=== PATIENT | male | born 1960 | race American Indian/Alaskan Native ===

== ENCOUNTER 2018-02-28 16:45 | Inpatient (IN) | payer MEDICARE, OTHER ==
[2018-02-28 16:46] VITALS: BMI 58.2
[2018-02-28] MEDS ORDERED: Albuterol 0.083% Inhal Sol (2.5 mg/3 mL) UD INH STA (18:19)
--- NOTE | 2018-02-28 18:30 | C.PDOC ---
History Of Present Illness 57yo male, with history of hypertension, presents to the ED with complaints of 1 week of progressive shortness of breath worsening with exertion, fatigue, and increased sleeping. He denies any previous history of such symptoms. He denies any fever, chills, chest pain, weakness, calf pain, recent travels, and history of DVT or PE. No other complaints. Time Seen by Provider: 02/28/18 17:34 Chief Complaint (Nursing): Shortness Of Breath History Per: Patient History/Exam Limitations: no limitations Onset/Duration Of Symptoms: Days Current Symptoms Are (Timing): Still Present Associated Symptoms: denies: Fever, Chills, Chest Pain Past Medical History Reviewed: Historical Data, Nursing Documentation, Vital Signs Vital Signs: Last Vital Signs Temp 97.5 F L 02/28/18 17:15 Pulse 85 02/28/18 17:15 Resp 20 02/28/18 17:15 BP 131/86 02/28/18 17:15 Pulse Ox 92 L 02/28/18 18:50 - Medical History PMH: Anemia, Arthritis, HTN, Hypercholesterolemia (HTN) Denies: Asthma, Chronic Kidney Disease Surgical History: Endoscopy - [facility] Procedures INSERTION OF INFUSION DEV INTO SUP VENA CAVA, PERC APPROACH (12/14/15) Family History: States: No Known Family Hx - Social History Hx Tobacco Use: No Hx Alcohol Use: No Hx Substance Use: No - Immunization History Hx Tetanus Toxoid Vaccination: No Hx Influenza Vaccination: No Hx Pneumococcal Vaccination: No Review Of Systems Except As Marked, All Systems Reviewed And Found Negative. Constitutional: Positive for: Other (fatigue). Negative for: Fever, Chills Cardiovascular: Negative for: Chest Pain Respiratory: Positive for: Shortness of Breath Physical Exam - Physical Exam Appears: Non-toxic, No Acute Distress Skin: Normal Color, Warm, Dry Head: Atraumatic, Normacephalic Eye(s): bilateral: Normal Inspection, PERRL Oral Mucosa: Moist Neck: Normal ROM, Supple Chest: Symmetrical Cardiovascular: Rhythm Regular Respiratory: Decreased Breath Sounds (diminished breath sounds bilaterally) Gastrointestinal/Abdominal: Normal Exam, Bowel Sounds, Soft Extremity: Pedal Edema (2+ pitting, bilaterally), Other (ulcer noted to left lateral tib/fib region) Neurological/Psych: Oriented x3 ED Course And Treatment O2 Sat by Pulse Oximetry: 92 Medical Decision Making Medical Decision Making: Impression: Shortness of breath Plan: -- Labs -- CXR -- Albuterol 2.5 mg INH -- Urinalysis Disposition - Disposition Disposition Time: 19:00 Condition: STABLE Forms: [facility] (Y[place]i) - Clinical Impression Clinical Impression: Dyspnea Physician Patient Turnover Patient Signed Over To: Shayna Mann Handoff Comments: case s/o pending labs, imaging, reevaluation and disposition
[2018-02-28] MEDS ORDERED: Albuterol 0.083% Inhal Sol (2.5 mg/3 mL) UD ONE (18:54)
[2018-02-28] MEDS ORDERED: Enoxaparin 150 mg Syringe SC STA (20:04)
[2018-02-28 20:11] LABS: BASO # 0.1 K/uL (0.0-0.2); BASO % 0.5 % (0.0-2.0); EOS # 0.3 K/uL (0.0-0.7); EOS % 2.1 % (0.0-4.0); HEMOGLOBIN 11.4 g/dL (12.0-18.0); LYMPH # 2.4 K/uL (1.0-4.3); LYMPH % 15.8 % (20.0-40.0); MEAN CELL VOLUME 86.6 fL (80.0-94.0); MEAN CORPUSCULAR HEMOGLOBIN 27.4 pg (27.0-31.0); MEAN CORPUSCULAR HGB CONC 31.6 g/dL (33.0-37.0); MEAN PLATELET VOLUME 7.2 fL (7.2-11.7); MONO # 1.1 K/uL (0.0-0.8); MONO % 7.1 % (0.0-10.0); NEUT # 11.4 K/uL (1.8-7.0); NEUT % 74.5 % (50.0-75.0); NRBC % 0.1 % (0.0-2.0); RBC 4.15 Mil/uL (4.40-5.90); WHITE BLOOD COUNT 15.3 K/uL (4.8-10.8)
[2018-02-28 20:23] LABS: CALCIUM 9.8 mg/dl (8.6-10.4)
[2018-02-28 20:24] LABS: ALB/GLOB RATIO 0.9 (1.0-2.1); ALBUMIN 4.2 g/dL (3.5-5.0)
[2018-02-28] MEDS ORDERED: Enoxaparin 100 mg Syringe ONE (20:29)
[2018-02-28] MEDS ORDERED: Enoxaparin 60 mg Syringe ONE (20:29)
[2018-02-28 20:33] LABS: URINE BILIRUBIN NEGATIVE (NEGATIVE); URINE BLOOD 1+ (NEGATIVE); URINE CLARITY Clear (Clear); URINE COLOR Straw (YELLOW); URINE GLUCOSE (UA) NORMAL (Normal); URINE HYALINE CAST 0-2 /lpf (0-2); URINE LEUKOCYTE ESTERASE NEG Leu/uL (Negative); URINE PROTEIN NEGATIVE (NEGATIVE); URINE UROBILINOGEN NORMAL mg/dL (0.2-1.0)
[2018-02-28 20:37] LABS: TROPONIN I 0.084 ng/mL (0.00-0.120)
[2018-02-28] MEDS ORDERED: Iodixanol 320 mg/ml 150 ml Bottle IV ONE (20:59)
--- NOTE | 2018-02-28 22:24 | CT ---
EXAM: CT Angiography Chest With Intravenous Contrast CLINICAL HISTORY: 57 years old, male; Signs and symptoms; Shortness of breath; Patient HX: Obese; Additional info: SOB TECHNIQUE: Axial computed tomographic angiography images of the chest with intravenous contrast using pulmonary embolism protocol. All CT scans at this facility use one or more dose reduction techniques, viz.: automated exposure control; ma/kV adjustment per patient size (including targeted exams where dose is matched to indication; i.e. head); or iterative reconstruction technique. MIP reconstructed images were created and reviewed. Coronal and sagittal reformatted images were created and reviewed. CONTRAST: 150 mL of VISIPAQUE 320 administered intravenously. COMPARISON: CR - CHEST PORTABLE 2015-12-30 15:45 FINDINGS: Limitations: Technical factors related to body habitus. Motion artifact - mild. Streak artifact - mild. Pulmonary arteries: No definite filling defects within main, lobar, segmental branches. Suboptimal evaluation of subsegmental branches. Aorta: No aneurysm. No dissection. Lungs: Mild atelectasis/scarring. No consolidation. Mild mosaic pattern of lung parenchyma. Minimal interlobular septal thickening. Pleural space: No significant effusion. No pneumothorax. Heart: Mild cardiomegaly. No significant pericardial effusion. Bones/joints: Mild degenerative changes of spine. No acute fracture. Soft tissues: Mild gynecomastia. Lymph nodes: No pathologically enlarged lymph nodes. Adrenals: Mild hypertrophy of adrenal glands. IMPRESSION: 1. No definite pulmonary embolism. 2. Possible early interstitial edema. Clinical correlation is needed. 3. Incidental/non-acute findings are described above.
[2018-02-28] MEDS ORDERED: Sod Polystyrene Sulf 15 gm/60 ml Susp PO ONE (23:09)
[2018-02-28] MEDS ORDERED: Sod Polystyrene Sulf 15 gm/60 ml Susp ONE ×2 (23:24→23:31)
[2018-02-28] MEDS ORDERED: Oxycodone/Acetaminophen 5/325 mg Tab ONE (23:24)
[2018-02-28] MEDS: Oxycodone/Acetaminophen 5/325 mg Tab PO PRN (23:27)
[2018-02-28] MEDS: Vancomycin 1 gm/NS 200 ml 1 GM/200 ML BAG IVPB SCH (23:35)
[2018-03-01] MEDS: Albuterol-Ipratrop 3 mg / 0.5 (3 ml) UD INH SCH ×7 (00:05→23:50)
[2018-03-01 08:03] LABS: BASO # 0.1 K/uL (0.0-0.2); BASO % 0.5 % (0.0-2.0); EOS # 0.2 K/uL (0.0-0.7); EOS % 1.4 % (0.0-4.0); HEMOGLOBIN 11.1 g/dL (12.0-18.0); LYMPH # 1.9 K/uL (1.0-4.3); MEAN CELL VOLUME 86.1 fL (80.0-94.0); MEAN CORPUSCULAR HGB CONC 32.5 g/dL (33.0-37.0); MEAN PLATELET VOLUME 7.6 fL (7.2-11.7); MONO # 1.2 K/uL (0.0-0.8); MONO % 8.5 % (0.0-10.0); NEUT # 11.2 K/uL (1.8-7.0); NEUT % 76.6 % (50.0-75.0); RBC 3.98 Mil/uL (4.40-5.90); RED CELL DISTRIBUTION WIDTH 17.1 % (11.5-14.5); WHITE BLOOD COUNT 14.6 K/uL (4.8-10.8)
--- NOTE | 2018-03-01 08:20 | RAD ---
HISTORY: SOB COMPARISON: Chest x-ray 12/30/2015 TECHNIQUE: Chest one view . FINDINGS: LUNGS: Moderate pulmonary vascular congestion. PLEURA: No pleural effusion is identified. CARDIOVASCULAR: Heart size is within normal limits. OSSEOUS STRUCTURES: Mild hypertrophic degenerative changes noted of the bilateral acromioclavicular joints. VISUALIZED UPPER ABDOMEN: Unremarkable. OTHER FINDINGS: None. IMPRESSION: Moderate pulmonary vascular congestion.
[2018-03-01 08:32] LABS: ALB/GLOB RATIO 0.8 (1.0-2.1); ALBUMIN 3.8 g/dL (3.5-5.0); ALT/SGPT 31 U/L (21-72); AST/SGOT 35 U/L (17-59); BLOOD UREA NITROGEN 19 mg/dL (9-20); CALCIUM 9.4 mg/dl (8.6-10.4); GFR AFRICAN-AMERICAN > 60; GFR NON-AFRICAN AMERICAN 57
[2018-03-01 08:43] LABS: B-TYPE NATRIURETIC PEPTIDE 340 pg/mL (0-900)
[2018-03-01] MEDS: Enoxaparin 40 mg Syringe SC SCH (10:18)
[2018-03-01] MEDS: Vancomycin 1 gm/NS 200 ml 1 GM/200 ML BAG IVPB SCH ×2 (11:33→23:49)
--- NOTE | 2018-03-01 12:03 | CP.PCM.CON ---
History of Present Illness - History of Present Illness History of Present Illness: 57yo male, with history of hypertension, presents to the ED with complaints of 1 week of progressive shortness of breath worsening with exertion, fatigue, and increased sleeping. He denies any previous history of such symptoms. He denies any fever, chills, chest pain, weakness, calf pain, recent travels, and history of DVT or PE. No other complaints. referred for ID eval antibiotic management of SSTI / leg ulcers / cellulitis - Medical History PMH: Anemia, Arthritis, HTN, Hypercholesterolemia (HTN) morbid obesity ?ANDREIA Denies: Asthma, Chronic Kidney Disease Surgical History: Endoscopy - [facility] Procedures INSERTION OF INFUSION DEV INTO SUP VENA CAVA, PERC APPROACH (12/14/15) Family History: States: No Known Family Hx Review of Systems - Review of Systems All systems: reviewed and no additional remarkable complaints except - Constitutional Constitutional: As Per HPI - EENT Eyes: absent: As Per HPI, Blind Spots, Blurred Vision, Change in Vision, Decreased Night Vision, Diplopia, Discharge, Dry Eye, Exophthalmos, Floaters, Irritation, Itchy Eyes, Loss of Peripheral Vision, Pain, Photophobia, Requires Corrective Lenses, Sees Flashes, Spots in Vision, Tunnel Vision, Other Visual Disturbances, Loss of Vision, Other Ears: absent: As Per HPI, Decreased Hearing, Ear Discharge, Ear Pain, Tinnitus, Abnormal Hearing, Disequilibrium, Dizziness, Other Nose/Mouth/Throat: absent: As Per HPI, Epistaxis, Nasal Congestion, Nasal Discharge, Nasal Obstruction, Nasal Trauma, Nose Pain, Post Nasal Drip, Sinus Pain, Sinus Pressure, Bleeding Gums, Change in Voice, Dental Pain, Dry Mouth, Dysphagia, Halitosis, Hoarsness, Lip Swelling, Mouth Lesions, Mouth Pain, Odynophagia, Sore Throat, Throat Swelling, Tongue Swelling, Facial Pain, Neck Pain, Neck Mass, Other - Cardiovascular Cardiovascular: As Per HPI - Respiratory Respiratory: As Per HPI - Gastrointestinal Gastrointestinal: absent: As Per HPI, Abdominal Pain, Belching, Bloating, Change in Bowel Habits, Change in Stool Character, Coffee Ground Emesis, Constipation, Cramping, Diarrhea, Dyspepsia, Dysphagia, Early Satiety, Excessive Flatus, Fecal Incontinence, Heartburn, Hematemesis, Hematochezia, Loose Stools, Melena, Nausea, Odynophagia, Temesmus, Vomiting, Other - Genitourinary Genitourinary: absent: As Per HPI, Change in Urinary Stream, Difficulty Urinating, Dysuria, Flank Pain, Hematuria, Pyuria, Nocturia, Urinary Incontinence, Urinary Frequency, Urinary Hesitance, Urinary Urgency, Voiding Freq/Small Amts, Freq UTI, Hx Renal/Bladder Calculi, Hx /Renal Surgery, Bladder Distension, Other - Musculoskeletal Musculoskeletal: As Per HPI - Integumentary Integumentary: As Per HPI, Skin Pain, Wounds - Neurological Neurological: absent: As Per HPI, Abnormal Gait, Abnormal Hearing, Abnormal Movements, Abnormal Speech, Behavioral Changes, Burning Sensations, Confusion, Convulsions, Disequilibrium, Dizziness, Numbness, Focal Weakness, Frequent Falls , Headaches, Lack of Coordination, Loss of Vision, Memory Loss, Paresthesias, Radicular Pain, Restless Legs, Sensory Deficit, Syncope, Tingling, Tremor, Vertigo, Weakness, Other Visual Disturbances, Other - Psychiatric Psychiatric: absent: As Per HPI, Abnormal Sleep Pattern, Anhedonia, Anxiety, Auditory Hallucinations, Behavioral Changes, Change in Appetite, Change in Libido, Confusion, Depression, Difficulty Concentrating, Hallucinations, Homicidal Ideation, Hopelessness, Irritability, Memory Loss, Mood Swings, Panic Attacks, Paranoia, Suicidal Ideation, Visual Hallucinations, Tactile Hallucinations, Other - Endocrine Endocrine: absent: As Per HPI, Change in Body Appearance, Change in Libido, Cold Intolorance, Deepening of Voice, Excessive Sweating, Fatigue, Flushing, Heat Intolorance, Increase in Ring/Shoe/Hat Size, Palpitations, Polydipsia, Polyphagia, Polyuria, Other - Hematologic/Lymphatic Hematologic: absent: As Per HPI, Easy Bleeding, Easy Bruising, Lymphadenopathy, Other Past Patient History - Past Medical History & Family History Past Medical History?: Yes - Past Social History Smoking Status: Never Smoked - CARDIAC Hx Cardiac Disorders: Yes Hx Hypercholesterolemia: Yes (HTN) Hx Hypertension: Yes - PULMONARY Hx Respiratory Disorders: No Hx Asthma: No - NEUROLOGICAL Hx Neurological Disorder: Yes Other/Comment: HX: RIGHT CARPAL TUNNEL SYNDROME. HX: LEFT CARPAL TIUNNEL SYNDROME - HEENT Hx HEENT Problems: No Other/Comment: glasses - RENAL Hx Chronic Kidney Disease: No - ENDOCRINE/METABOLIC Hx Endocrine Disorders: No Hx Diabetes Mellitus Type 2: No - HEMATOLOGICAL/ONCOLOGICAL Hx Blood Disorders: Yes Hx Anemia: Yes - INTEGUMENTARY Hx Dermatological Problems: Yes Hx Cellulitis: Yes (left leg) Hx Psoriasis: Yes - MUSCULOSKELETAL/RHEUMATOLOGICAL Hx Falls: No - GASTROINTESTINAL Hx Gastrointestinal Disorders: No - GENITOURINARY/GYNECOLOGICAL Hx Genitourinary Disorders: No - PSYCHIATRIC Hx Substance Use: No - SURGICAL HISTORY Hx Surgeries: Yes Hx Cardiac Catheterization: Yes Other/Comment: 30 years ago right leg pt. fell playing basketball tore ligament has a noticable scar. HX: RIGHT CARPAL TUNNEL RELEASE - ANESTHESIA Hx Anesthesia: Yes Hx Anesthesia Reactions: Yes (ANXIETY) Hx Malignant Hyperthermia: No Meds Allergies/Adverse Reactions: Allergies Allergy/AdvReac Type Severity Reaction Status Date / Time No Known Allergies Allergy Verified 02/28/18 17:18 - Medications Medications: Current Medications Albuterol/Ipratropium (Duoneb 3 Mg/0.5 Mg (3 Ml) Ud) 3 ml INH RQ4 [facility] Last Admin: 03/01/18 11:28 Dose: 3 ml Enoxaparin Sodium (Lovenox) 40 mg SC DAILY [facility] Last Admin: 03/01/18 10:18 Dose: 40 mg Furosemide (Lasix) 40 mg PO DAILY [facility] Last Admin: 03/01/18 10:15 Dose: 40 mg Vancomycin/Sodium Chloride (Vancomycin 1 Gm/Ns 200 Ml) 1 gm in 200 mls @ 133.333 mls/hr IVPB Q12H [facility] PRN Reason: Protocol Last Admin: 03/01/18 11:33 Dose: 133.333 mls/hr Oxycodone/Acetaminophen (Percocet 5/325 Mg Tab) 1 tab PO Q4H PRN PRN Reason: pain Stop: 03/03/18 23:03 Last Admin: 02/28/18 23:27 Dose: 1 tab Pneumococcal Polyvalent Vaccine (Pneumovax 23 Vaccine) 0.5 ml IM .ONCE ONE Stop: 03/03/18 14:01 Physical Exam - Constitutional Appears: Non-toxic, Chronically Ill - Head Exam Head Exam: NORMOCEPHALIC - Eye Exam Eye Exam: PERRL. absent: Scleral icterus - ENT Exam ENT Exam: Mucous Membranes Dry, Normal External Ear Exam, Normal Oropharynx - Neck Exam Neck exam: Negative for: Lymphadenopathy, Thyromegaly - Respiratory Exam Respiratory Exam: Decreased Breath Sounds, Rhonchi - Cardiovascular Exam Cardiovascular Exam: REGULAR RHYTHM, +S1, +S2 - GI/Abdominal Exam GI & Abdominal Exam: Diminished Bowel Sounds, Soft. absent: Tenderness - Rectal Exam Rectal Exam: Deferred - Exam Exam: NORMAL INSPECTION - Extremities Exam Extremities exam: Positive for: pedal edema, tenderness. Negative for: calf tenderness, pedal pulses present - Back Exam Back exam: absent: CVA tenderness (L), CVA tenderness (R), NORMAL INSPECTION - Neurological Exam Neurological exam: Alert, CN II-XII Intact - Psychiatric Exam Psychiatric exam: Depressed - Skin Skin Exam: Dry Results - Vital Signs Recent Vital Signs: Last Vital Signs Temp 97.9 F 03/01/18 08:24 Pulse 74 03/01/18 11:28 Resp 20 03/01/18 08:24 BP 120/80 03/01/18 10:15 Pulse Ox 96 03/01/18 08:24 - Labs Result Diagrams: 03/01/18 07:56 03/01/18 07:56 Labs: Laboratory Results - last 24 hr 02/28/18 02/28/18 02/28/18 19:29 20:09 20:09 WBC 15.3 H RBC 4.15 L Hgb 11.4 L Hct 35.9 MCV 86.6 MCH 27.4 MCHC 31.6 L RDW 17.0 H Plt Count 365 D MPV 7.2 Neut % (Auto) 74.5 Lymph % (Auto) 15.8 L Grimes % (Auto) 7.1 Eos % (Auto) 2.1 Baso % (Auto) 0.5 Neut # (Auto) 11.4 H Lymph # (Auto) 2.4 Grimes # (Auto) 1.1 H Eos # (Auto) 0.3 Baso # (Auto) 0.1 D-Dimer, Quantitative 3583 H Sodium 142 Potassium 6.0 H Chloride 104 Carbon Dioxide 31 H Anion Gap 13 BUN 22 H Creatinine 1.5 Est GFR ( Amer) 58 Est GFR (Non-Af Amer) 48 Random Glucose 92 Calcium 9.8 Total Bilirubin 1.6 H AST 60 H ALT 20 L D Alkaline Phosphatase 78 Troponin I 0.0840 NT-Pro-B Natriuret Pep 245 Total Protein 8.8 H Albumin 4.2 Globulin 4.6 H Albumin/Globulin Ratio 0.9 L Urine Color Urine Clarity Urine pH Ur Specific [place] Urine Protein Urine Glucose (UA) Urine Ketones Urine Blood Urine Nitrate Urine Bilirubin Urine Urobilinogen Ur Leukocyte Esterase Urine WBC (Auto) Urine RBC (Auto) Hyaline Casts 02/28/18 03/01/18 03/01/18 20:19 07:56 07:56 WBC 14.6 H RBC 3.98 L Hgb 11.1 L Hct 34.3 L MCV 86.1 MCH 28.0 MCHC 32.5 L RDW 17.1 H Plt Count 352 MPV 7.6 Neut % (Auto) 76.6 H Lymph % (Auto) 13.0 L Grimes % (Auto) 8.5 Eos % (Auto) 1.4 Baso % (Auto) 0.5 Neut # (Auto) 11.2 H Lymph # (Auto) 1.9 Grimes # (Auto) 1.2 H Eos # (Auto) 0.2 Baso # (Auto) 0.1 D-Dimer, Quantitative Sodium 135 Potassium 4.0 Chloride 105 Carbon Dioxide 28 Anion Gap 6 L BUN 19 Creatinine 1.3 Est GFR ( Amer) > 60 Est GFR (Non-Af Amer) 57 Random Glucose 103 Calcium 9.4 Total Bilirubin 0.6 AST 35 ALT 31 Alkaline Phosphatase 83 Troponin I NT-Pro-B Natriuret Pep 340 Total Protein 8.2 Albumin 3.8 Globulin 4.5 H Albumin/Globulin Ratio 0.8 L Urine Color Straw Urine Clarity Clear Urine pH 5.0 Ur Specific [place] 1.009 Urine Protein Negative Urine Glucose (UA) Normal Urine Ketones Negative Urine Blood 1+ H Urine Nitrate Negative Urine Bilirubin Negative Urine Urobilinogen Normal Ur Leukocyte Esterase Neg Urine WBC (Auto) 1 Urine RBC (Auto) 7 H Hyaline Casts 0-2 Assessment & Plan (1) Dyspnea Status: Acute (2) Leg ulcer, left Status: Acute (3) Morbid obesity Status: Acute (4) Cellulitis Status: Acute (5) Fever Status: Acute - Assessment and Plan (Free Text) Assessment: cont iv antibiotics and wound care consider vascular eval await cultures
[2018-03-01] MEDS ORDERED: Cefepime IV 1 gm in Dextrose 1 GM/50 ML BAG IVPB SCH (13:00)
--- NOTE | 2018-03-01 15:07 | CARD ---
APPROVED REPORT EKG Measurement Heart [id number] <Conclusion> Normal sinus rhythm Anteroseptal infarct, age undetermined Abnormal ECG
[2018-03-01] MEDS: Cefepime IV 1 gm in Dextrose 1 GM/50 ML BAG IVPB SCH (16:05)
--- NOTE | 2018-03-01 19:06 | CARD ---
APPROVED REPORT EXAM: Two-dimensional and M-mode echocardiogram with Doppler and color Doppler. Other Information Quality : TDSRhythm : INDICATION Dyspnea Peripheral Edema Morbid Obesity RISK FACTORS Hypertension 2D DIMENSIONS IVSd1.5 (0.7-1.1cm)LVDd4.2 (3.9-5.9cm) PWd1.5 (0.7-1.1cm)LVDs3.0 (2.5-4.0cm) FS (%) 29.2 %LVEF (%)56.4 (>50%) M-Mode DIMENSIONS Left Atrium (MM)3.94 (2.5-4.0cm)Aortic Root3.29 (2.2-3.7cm) Aortic Cusp Exc.2.33 (1.5-2.0cm) Mitral Valve MV E Xizvsoud74.0cm/sMV A Bcanvpol35.4cm/sE/A ratio1.1 TDI E/Lateral E'0.0E/Medial E'0.0 Tricuspid Valve TR Peak [id number]/sTR Peak Gr.29mmHg LEFT VENTRICLE There is moderate concentric left ventricular hypertrophy. The left ventricular systolic function is normal. The left ventricular ejection fraction is within the normal range. There is normal LV segmental wall motion. The left ventricular diastolic function is normal. Normal left atrial pressure. ATRIA The left atrial index is mildly increased. The right atrium size is normal. AORTIC VALVE The aortic valve is normal in structure. No aortic regurgitation is present. MITRAL VALVE The mitral valve is normal in structure. There is no mitral valve regurgitation noted. TRICUSPID VALVE The tricuspid valve is normal in structure. There is mild tricuspid regurgitation. Right ventricular systolic pressure is estimated at less than 30 mmHg. PULMONIC VALVE The pulmonic valve is not well visualized. GREAT VESSELS The IVC was not visualized. PERICARDIAL EFFUSION There is no gross pericardial effusion. <Conclusion> TECHNICALLY DIFFICULT STUDY. Normal bi-ventricular function. No significant valvular abnormality noted. No gross pericardial effusion.
[2018-03-01] MEDS: Oxycodone/Acetaminophen 5/325 mg Tab PO PRN (19:35)
[2018-03-02] MEDS: Cefepime IV 1 gm in Dextrose 1 GM/50 ML BAG IVPB SCH ×2 (03:30→16:42)
[2018-03-02] MEDS: Albuterol-Ipratrop 3 mg / 0.5 (3 ml) UD INH SCH ×5 (03:50→19:44)
[2018-03-02] MEDS: Enoxaparin 40 mg Syringe SC SCH (09:23)
--- NOTE | 2018-03-02 09:38 | HP ---
HISTORY OF PRESENT ILLNESS: A 57-year-old male with history of morbid obesity, sleep apnea, obesity hypoventilation syndrome, admitted to the hospital with chief compliant of lower extremity, shortness of breath, weakness. The patient uses BiPAP at home. The patient is morbidly obese. PHYSICAL EXAMINATION: VITAL SIGNS: Pulse 95, blood pressure 130/100, respiratory rate 20. HEENT: Within normal limits. NECK: Supple. CHEST: Symmetrical. Decreased air entry. HEART: Regular. ABDOMEN: Soft. EXTREMITIES: No pitting edema with cellulitis present. ASSESSMENT AND PLAN: The patient suffers from lower extremity with hypoventilation syndrome, core pulmonale, pulmonary hypertension and right side failure. At this point, get IV antibiotic, oxygen, BiPAP, dialysis. Marixa Panchal MD
[2018-03-02 11:30] LABS: BASO % 0.2 % (0.0-2.0); EOS % 0.3 % (0.0-4.0); HEMOGLOBIN 10.9 g/dL (12.0-18.0); LYMPH # 1.7 K/uL (1.0-4.3); MEAN CELL VOLUME 87.3 fL (80.0-94.0); MEAN CORPUSCULAR HEMOGLOBIN 27.5 pg (27.0-31.0); MEAN CORPUSCULAR HGB CONC 31.5 g/dL (33.0-37.0); MEAN PLATELET VOLUME 7.7 fL (7.2-11.7); MONO % 6.8 % (0.0-10.0); NEUT # 11.6 K/uL (1.8-7.0); NEUT % 80.7 % (50.0-75.0); RBC 3.97 Mil/uL (4.40-5.90); RED CELL DISTRIBUTION WIDTH 17.5 % (11.5-14.5); WHITE BLOOD COUNT 14.4 K/uL (4.8-10.8)
[2018-03-02 11:50] LABS: ALB/GLOB RATIO 0.9 (1.0-2.1); ALBUMIN 3.7 g/dL (3.5-5.0); ALT/SGPT 26 U/L (21-72); AST/SGOT 29 U/L (17-59); BLOOD UREA NITROGEN 18 mg/dL (9-20); CALCIUM 9.4 mg/dl (8.6-10.4); GFR AFRICAN-AMERICAN > 60; GFR NON-AFRICAN AMERICAN 57
[2018-03-02 11:55] LABS: VANCOMYCIN TROUGH 12.6 ug/mL (5.0-10.0)
[2018-03-02 12:26] LABS: HEPATITIS B SURFACE AG Negative (NEGATIVE)
[2018-03-02 12:27] LABS: HIV 1&2 ANTIBODY NEGATIVE (NEGATIVE)
[2018-03-02] MEDS: Vancomycin 1 gm/NS 200 ml 1 GM/200 ML BAG IVPB SCH ×2 (12:30→23:30)
[2018-03-02 12:32] LABS: HEPATITIS A IGM NEGATIVE (NEGATIVE); HEPATITIS B CORE AB NEGATIVE (NEGATIVE)
[2018-03-02 12:44] LABS: HEPATITIS C ANTIBODY NEGATIVE (NEGATIVE)
[2018-03-02 13:35] LABS: ABG ALLEN TEST POS; ARTERIAL BLOOD GAS HEMOGLOBIN 12.1 g/dL (11.7-17.4); ARTERIAL BLOOD GAS O2 SAT 88.7 % (95-98); ARTERIAL BLOOD GAS PCO2 90 mm/Hg (35-45); ARTERIAL BLOOD GAS PH 7.12 (7.35-7.45); ARTERIAL BLOOD GAS PO2 58 mm/Hg (80-100); ARTERIAL BLOOD GAS TCO2 32.1 mmol/L (22-28)
--- NOTE | 2018-03-02 13:50 | CP.PCM.PN ---
Subjective - Date & Time of Evaluation Date of Evaluation: 03/02/18 Time of Evaluation: 13:00 - Subjective Subjective: Patient seen today, tachypnic, sob noted , denies any chest pain, abdominal pain , Patient using on and off BIPAP , refused to use BIPAP continuously, despite multiple discussions with patient , de saturates with nasal canula below 90's patient refused to do ABG despite multiple discussions. Objective - Vital Signs/Intake and Output Vital Signs (last 24 hours): Temp Pulse Resp BP Pulse Ox 98.1 F 110 H 20 138/80 93 L 03/02/18 07:00 03/02/18 07:00 03/02/18 07:00 03/02/18 09:23 03/02/18 07:00 Intake and Output: 03/02/18 03/02/18 06:59 18:59 Intake Total 650 Output Total 500 Balance 150 - Medications Medications: Current Medications Albuterol/Ipratropium (Duoneb 3 Mg/0.5 Mg (3 Ml) Ud) 3 ml INH RQ4 [facility] Last Admin: 03/02/18 11:04 Dose: Not Given Enoxaparin Sodium (Lovenox) 40 mg SC DAILY [facility] Last Admin: 03/02/18 09:23 Dose: 40 mg Furosemide (Lasix) 40 mg PO DAILY [facility] Last Admin: 03/02/18 09:23 Dose: 40 mg Vancomycin/Sodium Chloride (Vancomycin 1 Gm/Ns 200 Ml) 1 gm in 200 mls @ 133.333 mls/hr IVPB Q12H [facility] PRN Reason: Protocol Last Admin: 03/02/18 12:30 Dose: 133.333 mls/hr Cefepime HCl (Maxipime Iv 1 Gm Premix) 1 gm in 50 mls @ 100 mls/hr IVPB Q12H [facility] PRN Reason: Protocol Last Admin: 03/02/18 03:30 Dose: 100 mls/hr Oxycodone/Acetaminophen (Percocet 5/325 Mg Tab) 1 tab PO Q4H PRN PRN Reason: pain Stop: 03/03/18 23:03 Last Admin: 03/01/18 19:35 Dose: 1 tab Pneumococcal Polyvalent Vaccine (Pneumovax 23 Vaccine) 0.5 ml IM .ONCE ONE Stop: 03/03/18 14:01 - Labs Labs: 03/02/18 11:24 03/02/18 11:24 Assessment and Plan - Assessment and Plan (Free Text) Assessment: A/P 57 yr old male with pmhx of HTN , Hypercholesterolemia admitted with LE judy, wound and 1 week hx of SOB Patient refused ABG multiple times and refused to keep BIPAP continuously ABG done with help of presence - (See results) D/w Dr. Campo , second crusher and evaluated patient and accepts patient to ICU for farther management. The above plan discussed with Dr. Gustavo laguerre and agrees with plan
--- NOTE | 2018-03-02 14:04 | CP.PCM.PN ---
Subjective - Date & Time of Evaluation Date of Evaluation: 03/02/18 Time of Evaluation: 10:00 - Subjective Subjective: afeb c/o pain iv rx in progress Objective - Vital Signs/Intake and Output Vital Signs (last 24 hours): Temp Pulse Resp BP Pulse Ox 98.1 F 110 H 20 138/80 93 L 03/02/18 07:00 03/02/18 14:00 03/02/18 07:00 03/02/18 09:23 03/02/18 07:00 Intake and Output: 03/02/18 03/02/18 06:59 18:59 Intake Total 650 Output Total 500 Balance 150 - Medications Medications: Current Medications Albuterol/Ipratropium (Duoneb 3 Mg/0.5 Mg (3 Ml) Ud) 3 ml INH RQ4 [facility] Last Admin: 03/02/18 11:04 Dose: Not Given Enoxaparin Sodium (Lovenox) 40 mg SC DAILY [facility] Last Admin: 03/02/18 09:23 Dose: 40 mg Furosemide (Lasix) 40 mg PO DAILY [facility] Last Admin: 03/02/18 09:23 Dose: 40 mg Vancomycin/Sodium Chloride (Vancomycin 1 Gm/Ns 200 Ml) 1 gm in 200 mls @ 133.333 mls/hr IVPB Q12H [facility] PRN Reason: Protocol Last Admin: 03/02/18 12:30 Dose: 133.333 mls/hr Cefepime HCl (Maxipime Iv 1 Gm Premix) 1 gm in 50 mls @ 100 mls/hr IVPB Q12H [facility] PRN Reason: Protocol Last Admin: 03/02/18 03:30 Dose: 100 mls/hr Oxycodone/Acetaminophen (Percocet 5/325 Mg Tab) 1 tab PO Q4H PRN PRN Reason: pain Stop: 03/03/18 23:03 Last Admin: 03/01/18 19:35 Dose: 1 tab Pneumococcal Polyvalent Vaccine (Pneumovax 23 Vaccine) 0.5 ml IM .ONCE ONE Stop: 03/03/18 14:01 - Labs Labs: 03/02/18 11:24 03/02/18 11:24 - Constitutional Appears: Non-toxic, Chronically Ill - Head Exam Head Exam: NORMOCEPHALIC - Eye Exam Eye Exam: PERRL - ENT Exam ENT Exam: Mucous Membranes Dry - Neck Exam Neck Exam: absent: Lymphadenopathy - Respiratory Exam Respiratory Exam: Decreased Breath Sounds - Cardiovascular Exam Cardiovascular Exam: REGULAR RHYTHM - GI/Abdominal Exam GI & Abdominal Exam: Distended - Rectal Exam Rectal Exam: Deferred - Exam Exam: NORMAL INSPECTION - Extremities Exam Extremities Exam: Pedal Edema Assessment and Plan (1) Dyspnea Status: Acute (2) Leg ulcer, left Status: Acute (3) Morbid obesity Status: Acute (4) Cellulitis Status: Acute (5) Fever Status: Acute
--- NOTE | 2018-03-02 14:18 | CP.PCM.PN ---
Subjective - Date & Time of Evaluation Date of Evaluation: 03/02/18 Time of Evaluation: 15:00 - Subjective Subjective: events noted transfer to ICU discussed with attending Objective - Vital Signs/Intake and Output Vital Signs (last 24 hours): Temp Pulse Resp BP Pulse Ox 98.1 F 110 H 20 138/80 93 L 03/02/18 07:00 03/02/18 14:00 03/02/18 07:00 03/02/18 09:23 03/02/18 07:00 Intake and Output: 03/02/18 03/02/18 06:59 18:59 Intake Total 650 Output Total 500 Balance 150 - Medications Medications: Current Medications Albuterol/Ipratropium (Duoneb 3 Mg/0.5 Mg (3 Ml) Ud) 3 ml INH RQ4 [facility] Last Admin: 03/02/18 11:04 Dose: Not Given Enoxaparin Sodium (Lovenox) 40 mg SC DAILY [facility] Last Admin: 03/02/18 09:23 Dose: 40 mg Furosemide (Lasix) 40 mg PO DAILY [facility] Last Admin: 03/02/18 09:23 Dose: 40 mg Vancomycin/Sodium Chloride (Vancomycin 1 Gm/Ns 200 Ml) 1 gm in 200 mls @ 133.333 mls/hr IVPB Q12H [facility] PRN Reason: Protocol Last Admin: 03/02/18 12:30 Dose: 133.333 mls/hr Cefepime HCl (Maxipime Iv 1 Gm Premix) 1 gm in 50 mls @ 100 mls/hr IVPB Q12H [facility] PRN Reason: Protocol Last Admin: 03/02/18 03:30 Dose: 100 mls/hr Oxycodone/Acetaminophen (Percocet 5/325 Mg Tab) 1 tab PO Q4H PRN PRN Reason: pain Stop: 03/03/18 23:03 Last Admin: 03/01/18 19:35 Dose: 1 tab Pneumococcal Polyvalent Vaccine (Pneumovax 23 Vaccine) 0.5 ml IM .ONCE ONE Stop: 03/03/18 14:01 - Labs Labs: 03/02/18 11:24 03/02/18 11:24 Assessment and Plan (1) Dyspnea Status: Acute (2) Leg ulcer, left Status: Acute (3) Morbid obesity Status: Acute (4) Cellulitis Status: Acute (5) Fever Status: Acute
--- NOTE | 2018-03-02 15:12 | CP.PCM.CON ---
<Nii Santos - Last Filed: 03/02/18 15:37> History of Present Illness - History of Present Illness History of Present Illness: Critical Care Consult Note for Dr. Campo This is a 57 year old male with PMHx HTN who presented to the hospital with progressive shortness of breath. This began about a week ago. Patient admitted to the floors. However, this morning he was noted with worsening shortness of breath and labored breathing despite BiPAP. Patient seen and examined. History is limited due to patient's respiratory distress. Patient states that he has been getting over a cold recently. He has never smoked, nor has he had a sleep study done. Patient was seen on the floors tachypneic with shallow breaths. PMHx: HTN PSHx: knee surgery, bilateral carpal tunnel release Allergies: NKDA Social: Denies tobacco, alcohol, drug use Review of Systems - Review of Systems Systems not reviewed;Unavailable: Acuity of Condition, Respiratory Distress - Cardiovascular Cardiovascular: absent: Chest Pain - Respiratory Respiratory: Dyspnea - Gastrointestinal Gastrointestinal: absent: Abdominal Pain Past Patient History - Past Medical History & Family History Past Medical History?: Yes - Past Social History Smoking Status: Never Smoked - CARDIAC Hx Hypertension: Yes - PULMONARY Hx Respiratory Disorders: No Hx Asthma: No - NEUROLOGICAL Hx Neurological Disorder: Yes Other/Comment: HX: RIGHT CARPAL TUNNEL SYNDROME. HX: LEFT CARPAL TIUNNEL SYNDROME - HEENT Hx HEENT Problems: No Other/Comment: glasses - RENAL Hx Chronic Kidney Disease: No - ENDOCRINE/METABOLIC Hx Endocrine Disorders: No Hx Diabetes Mellitus Type 2: No - HEMATOLOGICAL/ONCOLOGICAL Hx Blood Disorders: Yes Hx Anemia: Yes - INTEGUMENTARY Hx Dermatological Problems: Yes Hx Cellulitis: Yes (left leg) Hx Psoriasis: Yes - MUSCULOSKELETAL/RHEUMATOLOGICAL Hx Arthritis: Yes - GASTROINTESTINAL Hx Gastrointestinal Disorders: No - GENITOURINARY/GYNECOLOGICAL Hx Genitourinary Disorders: No - PSYCHIATRIC Hx Substance Use: No - SURGICAL HISTORY Hx Surgeries: Yes Hx Cardiac Catheterization: Yes Other/Comment: 30 years ago right leg pt. fell playing basketball tore ligament has a noticable scar. HX: RIGHT CARPAL TUNNEL RELEASE - ANESTHESIA Hx Anesthesia: Yes Hx Anesthesia Reactions: Yes (ANXIETY) Hx Malignant Hyperthermia: No Meds Allergies/Adverse Reactions: Allergies Allergy/AdvReac Type Severity Reaction Status Date / Time No Known Allergies Allergy Verified 02/28/18 17:18 - Medications Medications: Current Medications Albuterol/Ipratropium (Duoneb 3 Mg/0.5 Mg (3 Ml) Ud) 3 ml INH RQ4 [facility] [place] Last Admin: 03/02/18 11:04 Dose: Not Given Enoxaparin Sodium (Lovenox) 40 mg SC DAILY [facility] [place] Last Admin: 03/02/18 09:23 Dose: 40 mg Furosemide (Lasix) 40 mg PO DAILY [facility] [place] Last Admin: 03/02/18 09:23 Dose: 40 mg Vancomycin/Sodium Chloride (Vancomycin 1 Gm/Ns 200 Ml) 1 gm in 200 mls @ 133.333 mls/hr IVPB Q12H LACHO PRN Reason: Protocol Last Admin: 03/02/18 12:30 Dose: 133.333 mls/hr Cefepime HCl (Maxipime Iv 1 Gm Premix) 1 gm in 50 mls @ 100 mls/hr IVPB Q12H LACHO PRN Reason: Protocol Last Admin: 03/02/18 03:30 Dose: 100 mls/hr Oxycodone/Acetaminophen (Percocet 5/325 Mg Tab) 1 tab PO Q4H PRN PRN Reason: pain Stop: 03/03/18 23:03 Last Admin: 03/01/18 19:35 Dose: 1 tab Pneumococcal Polyvalent Vaccine (Pneumovax 23 Vaccine) 0.5 ml IM .ONCE ONE Stop: 03/03/18 14:01 Physical Exam - Constitutional Appears: In Acute Distress, Other (severely morbidly obese) - Head Exam Head Exam: ATRAUMATIC, NORMOCEPHALIC - Eye Exam Eye Exam: EOMI, PERRL - ENT Exam ENT Exam: Mucous Membranes Moist - Respiratory Exam Respiratory Exam: Accessory Muscle Use, Decreased Breath Sounds, Respiratory Distress. absent: Rales, Rhonchi, Wheezes - Cardiovascular Exam Cardiovascular Exam: Tachycardia, +S1, +S2 - GI/Abdominal Exam GI & Abdominal Exam: Normal Bowel Sounds, Soft. absent: Tenderness Additional comments: morbidly obese - Extremities Exam Additional comments: Left lateral leg wound with purulence - Neurological Exam Neurological exam: Alert, Oriented x3 - Psychiatric Exam Psychiatric exam: Anxious - Skin Skin Exam: Dry, Warm Results - Vital Signs Recent Vital Signs: Last Vital Signs Temp 98.1 F 03/02/18 07:00 Pulse 110 H 03/02/18 14:00 Resp 20 03/02/18 07:00 BP 138/80 03/02/18 09:23 Pulse Ox 93 L 03/02/18 07:00 - Labs Result Diagrams: 03/02/18 11:24 03/02/18 11:24 Labs: Laboratory Results - last 24 hr 03/01/18 03/02/18 03/02/18 13:31 11:24 11:24 WBC 14.4 H RBC 3.97 L Hgb 10.9 L Hct 34.7 L MCV 87.3 MCH 27.5 MCHC 31.5 L RDW 17.5 H Plt Count 344 MPV 7.7 Neut % (Auto) 80.7 H Lymph % (Auto) 12.0 L [place] % (Auto) 6.8 Eos % (Auto) 0.3 Baso % (Auto) 0.2 Neut # (Auto) 11.6 H Lymph # (Auto) 1.7 [place] # (Auto) 1.0 H Eos # (Auto) 0.0 Baso # (Auto) 0.0 Puncture Site Rra pCO2 90 H* pO2 58 L HCO3 23.0 ABG pH 7.12 L* ABG Total CO2 32.1 H ABG O2 Saturation 88.7 L ABG Base Excess -2.1 L ABG Hemoglobin 12.1 ABG Carboxyhemoglobin 2.5 H POC ABG HHb (Measured) 10.9 H ABG Methemoglobin 0.9 Victoriano Test Pos Hgb O2 Saturation 85.7 L Liter Flow 2.0 Crit Value Called To Milton ramirez Crit Value Called By [employer] Crit Value Read Back Y Blood Gas Notified Time 1334 Sodium 143 Potassium 4.2 Chloride 100 Carbon Dioxide 33 H Anion Gap 14 BUN 18 Creatinine 1.3 Est GFR ( Amer) > 60 Est GFR (Non-Af Amer) 57 Random Glucose 127 H Calcium 9.4 Total Bilirubin 0.5 AST 29 ALT 26 Alkaline Phosphatase 84 Total Protein 7.8 Albumin 3.7 Globulin 4.1 H Albumin/Globulin Ratio 0.9 L Vancomycin Trough Hepatitis A IgM Ab Hep Bs Antigen Hep B Core IgM Ab Hepatitis C Antibody HIV 1&2 Antibody Screen 03/02/18 03/02/18 11:24 11:24 WBC RBC Hgb Hct MCV MCH MCHC RDW Plt Count MPV Neut % (Auto) Lymph % (Auto) [place] % (Auto) Eos % (Auto) Baso % (Auto) Neut # (Auto) Lymph # (Auto) [place] # (Auto) Eos # (Auto) Baso # (Auto) Puncture Site pCO2 pO2 HCO3 ABG pH ABG Total CO2 ABG O2 Saturation ABG Base Excess ABG Hemoglobin ABG Carboxyhemoglobin POC ABG HHb (Measured) ABG Methemoglobin Victoriano Test Hgb O2 Saturation Liter Flow Crit Value Called To Crit Value Called By Crit Value Read Back Blood Gas Notified Time Sodium Potassium Chloride Carbon Dioxide Anion Gap BUN Creatinine Est GFR ( Amer) Est GFR (Non-Af Amer) Random Glucose Calcium Total Bilirubin AST ALT Alkaline Phosphatase Total Protein Albumin Globulin Albumin/Globulin Ratio Vancomycin Trough 12.6 H Hepatitis A IgM Ab Negative Hep Bs Antigen Negative Hep B Core IgM Ab Negative Hepatitis C Antibody Negative HIV 1&2 Antibody Screen Negative Assessment & Plan - Assessment and Plan (Free Text) Assessment: This is a 57 year old morbidly obese male with PMHx HTN who presented to the hospital for shortness of breath. Patient was transferred to the ICU for impending respiratory failure. Patient intubated by anesthesia using Glidoscope. Neuro Intubated and sedated with Diprivan Cardio Assessment: Hx of HTN Home Vasotec 10 mg PO daily Pulm Assessment: Hypercapnic Respiratory Distress Duoneb Q4H LACHO Vented GI NPO for now Protonix 40 mg IV daily Infectious Disease Assessment: Left leg wound (gram negative gosia, gram positive cocci) Vancomycin 1 gm Q12 Cefepime 1 gm Q12 Prophylaxis Lovenox 40 mg SC daily Protonix 40 mg IV daily Discussed with Dr. Campo <Teo Campo S - Last Filed: 03/02/18 17:18> Meds - Medications Medications: Current Medications Albuterol/Ipratropium (Duoneb 3 Mg/0.5 Mg (3 Ml) Ud) 3 ml INH RQ4 [facility] [place] Last Admin: 03/02/18 16:50 Dose: 3 ml Enalapril Maleate (Vasotec) 10 mg PO DAILY [facility] [place] Enoxaparin Sodium (Lovenox) 40 mg SC DAILY [facility] [place] Last Admin: 03/02/18 09:23 Dose: 40 mg Vancomycin/Sodium Chloride (Vancomycin 1 Gm/Ns 200 Ml) 1 gm in 200 mls @ 133.333 mls/hr IVPB Q12H LACHO PRN Reason: Protocol Last Admin: 03/02/18 12:30 Dose: 133.333 mls/hr Cefepime HCl (Maxipime Iv 1 Gm Premix) 1 gm in 50 mls @ 100 mls/hr IVPB Q12H LACHO PRN Reason: Protocol Last Admin: 03/02/18 16:42 Dose: 100 mls/hr Propofol (Diprivan) 1,000 mg in 100 mls @ 5.156 mls/hr IV .[id number] PRN; Protocol; 5 MCG/KG/MIN PRN Reason: TITRATE PER MD ORDER Last Admin: 03/02/18 15:25 Dose: 5 mcg/kg/min, 5.156 mls/hr Oxycodone/Acetaminophen (Percocet 5/325 Mg Tab) 1 tab PO Q4H PRN PRN Reason: pain Stop: 03/03/18 23:03 Last Admin: 03/01/18 19:35 Dose: 1 tab Pantoprazole Sodium (Protonix Inj) 40 mg IVP DAILY [facility] [place] Pneumococcal Polyvalent Vaccine (Pneumovax 23 Vaccine) 0.5 ml IM .ONCE ONE Stop: 03/03/18 14:01 Results - Vital Signs Recent Vital Signs: Last Vital Signs Temp 98.1 F 03/02/18 07:00 Pulse 110 H 03/02/18 15:22 Resp 45 H 03/02/18 15:22 BP 148/90 03/02/18 15:22 Pulse Ox 88 L 03/02/18 15:22 - Labs Result Diagrams: 03/02/18 11:24 03/02/18 11:24 Labs: Laboratory Results - last 24 hr 03/01/18 03/02/18 03/02/18 13:31 11:24 11:24 WBC 14.4 H RBC 3.97 L Hgb 10.9 L Hct 34.7 L MCV 87.3 MCH 27.5 MCHC 31.5 L RDW 17.5 H Plt Count 344 MPV 7.7 Neut % (Auto) 80.7 H Lymph % (Auto) 12.0 L [place] % (Auto) 6.8 Eos % (Auto) 0.3 Baso % (Auto) 0.2 Neut # (Auto) 11.6 H Lymph # (Auto) 1.7 [place] # (Auto) 1.0 H Eos # (Auto) 0.0 Baso # (Auto) 0.0 Puncture Site Rra pCO2 90 H* pO2 58 L HCO3 23.0 ABG pH 7.12 L* ABG Total CO2 32.1 H ABG O2 Saturation 88.7 L ABG Base Excess -2.1 L ABG Hemoglobin 12.1 ABG Carboxyhemoglobin 2.5 H POC ABG HHb (Measured) 10.9 H ABG Methemoglobin 0.9 Victoriano Test Pos Hgb O2 Saturation 85.7 L Liter Flow 2.0 Crit Value Called To Milton james Crit Value Called By [employer] Crit Value Read Back Y Blood Gas Notified Time 1334 Sodium 143 Potassium 4.2 Chloride 100 Carbon Dioxide 33 H Anion Gap 14 BUN 18 Creatinine 1.3 Est GFR ( Amer) > 60 Est GFR (Non-Af Amer) 57 Random Glucose 127 H Calcium 9.4 Total Bilirubin 0.5 AST 29 ALT 26 Alkaline Phosphatase 84 Total Protein 7.8 Albumin 3.7 Globulin 4.1 H Albumin/Globulin Ratio 0.9 L Urine Color Urine Clarity Urine pH Ur Specific [place] Urine Protein Urine Glucose (UA) Urine Ketones Urine Blood Urine Nitrate Urine Bilirubin Urine Urobilinogen Ur Leukocyte Esterase Urine WBC (Auto) Urine RBC (Auto) Ur Squamous Epith Cells Amorphous Sediment Urine Bacteria Vancomycin Trough Hepatitis A IgM Ab Hep Bs Antigen Hep B Core IgM Ab Hepatitis C Antibody HIV 1&2 Antibody Screen 03/02/18 03/02/18 03/02/18 11:24 11:24 15:42 WBC RBC Hgb Hct MCV MCH MCHC RDW Plt Count MPV Neut % (Auto) Lymph % (Auto) [place] % (Auto) Eos % (Auto) Baso % (Auto) Neut # (Auto) Lymph # (Auto) [place] # (Auto) Eos # (Auto) Baso # (Auto) Puncture Site pCO2 pO2 HCO3 ABG pH ABG Total CO2 ABG O2 Saturation ABG Base Excess ABG Hemoglobin ABG Carboxyhemoglobin POC ABG HHb (Measured) ABG Methemoglobin Victoriano Test Hgb O2 Saturation Liter Flow Crit Value Called To Crit Value Called By Crit Value Read Back Blood Gas Notified Time Sodium Potassium Chloride Carbon Dioxide Anion Gap BUN Creatinine Est GFR ( Amer) Est GFR (Non-Af Amer) Random Glucose Calcium Total Bilirubin AST ALT Alkaline Phosphatase Total Protein Albumin Globulin Albumin/Globulin Ratio Urine Color Yellow Urine Clarity Hazy Urine pH 5.0 Ur Specific [place] 1.015 Urine Protein 1+ H Urine Glucose (UA) Normal Urine Ketones Negative Urine Blood Negative Urine Nitrate Negative Urine Bilirubin Negative Urine Urobilinogen Normal Ur Leukocyte Esterase Neg Urine WBC (Auto) 5 Urine RBC (Auto) 6 H Ur Squamous Epith Cells < 1 Amorphous Sediment Rare H Urine Bacteria Rare Vancomycin Trough 12.6 H Hepatitis A IgM Ab Negative Hep Bs Antigen Negative Hep B Core IgM Ab Negative Hepatitis C Antibody Negative HIV 1&2 Antibody Screen Negative Attending/Attestation - Attestation I have personally seen and examined this patient.: Yes I have fully participated in the care of the patient.: Yes I have reviewed all pertinent clinical information: Yes Notes (Text): 03/02/18 17:16 patient seen and examined in the intensive care unit. 57-year-old male transferred to ICU for shortness of breath and lethargy. Patient intubated and placed on ventilatory support for hypercapnic respiratory failure Triple-lumen catheter inserted in the right internal jugular vein IV steroids, nebulizer treatment IV sedation Follow-up ABG
--- NOTE | 2018-03-02 15:20 | PCM.ANES ---
Anesthesia Emergent Intubation - Diagnosis Working Diagnosis:: respiratory failure - Intubation Attempts Previous Number of Intubation Attempts:: 0 - Pre-Intubation Vital Signs Blood Pressure: 148/90 Heart Rate: 110 Respiratory Rate: 45 O2 Sat: 88 (bipap) FIO2: 100 Oxygen Delivery Method: BiPAP Level Of Consciousness: Comatose/Unresponsive, Lethargic Intubation Meds Given: Etomidate, Succinylcholine - Airway Management Oropharyngeal Area Suctioned: Yes Inhalation: Yes Rapid Sequence: Yes Cricoid Pressure: Yes Possible Aspiration: No - Method of Intubation Intubation Method: Oral ETT ETT Size: resitance with 8.0, immediately stopped/pulled back, switched 7.5, easy pass Lipline@: 22 Easy: No Atramatic: Yes - Intubation Devices Hailee Blade Size Used: 4 - Placement Confirmation Breath Sounds Present & Equal Bilaterally: Yes Gurgling Sounds Not Audible at Epigastrum: Yes Positive EtCO2: Yes Portable CXR: Yes Recommendations: Ventilator - Post-Intubation Vital Signs Blood Pressure: 180/90 Heart Rate: 120 Respiratory Rate: 16 O2 Sat: 100 FIO2: 1
[2018-03-02] MEDS: Propofol 10 mg/ml 1,000 MG/100 ML VIAL IV PRN ×3 (15:25→20:53)
--- NOTE | 2018-03-02 15:33 | RAD ---
HISTORY: intubated COMPARISON: Chest radiograph dated 02/28/2018. FINDINGS: LUNGS: Prominence of the pulmonary vasculature may be secondary to AP technique and/or pulmonary vascular congestion. No focal consolidation. PLEURA: No significant pleural effusion identified, no pneumothorax apparent. CARDIOVASCULAR: Cardiomediastinal silhouette stably enlarged. OSSEOUS STRUCTURES: Unchanged. VISUALIZED UPPER ABDOMEN: Normal. OTHER FINDINGS: Endotracheal tube with tip almost at the juancho. IMPRESSION: Interval placement of endotracheal tube with tip almost at the juancho. No other significant interval change.
--- NOTE | 2018-03-02 15:33 | RAD ---
HISTORY: reposition ETT COMPARISON: Chest radiograph performed approximately 5 minutes prior. FINDINGS: LUNGS: Prominence of the pulmonary vasculature may be secondary to AP technique and/or pulmonary vascular congestion. No focal consolidation. PLEURA: No significant pleural effusion identified, no pneumothorax apparent. CARDIOVASCULAR: Cardiomediastinal silhouette stably enlarged. OSSEOUS STRUCTURES: Unchanged. VISUALIZED UPPER ABDOMEN: Normal. OTHER FINDINGS: Retraction of endotracheal tube with tip at the inferior aspect of the clavicles IMPRESSION: Interval repositioning of endotracheal tube, now in satisfactory position.
[2018-03-02 16:00] LABS: SQUAMOUS EPITHIAL < 1 /hpf (0-5); URINE AMORPHOUS SEDIMENT RARE /ul (<OCC); URINE BACTERIA RARE (<OCC); URINE BILIRUBIN NEGATIVE (NEGATIVE); URINE BLOOD NEGATIVE (NEGATIVE); URINE CLARITY Hazy (Clear); URINE COLOR Yellow (YELLOW); URINE GLUCOSE (UA) NORMAL (Normal); URINE LEUKOCYTE ESTERASE NEG Leu/uL (Negative); URINE PROTEIN 1+ mg/dL (NEGATIVE); URINE UROBILINOGEN NORMAL mg/dL (0.2-1.0)
--- NOTE | 2018-03-02 16:28 | PCM.PROC ---
Procedures Attestation:: I certify that I have explained the specified Operation(s) or Procedure(s), risks, benefits and reasonable alternatives to the Patient and/or other person responsible. The opportunity was given to ask questions and all questions answered - Central Line Placement Right Internal Jugular Triple Lumen Catheter Aseptic technique was employed throughout the procedure: Hand Hygiene done prior to procedure, Full sterile barriers (mask, hair cover, sterile gown, sterile gloves), Chloraprep Antiseptic: 30 second prep for IJ or SC sites Central Line Prep: Chlorhexidine-Alcohol Combination Local Anesthesia Used: Lidocaine 2% Ultrasound Used for Placement: Yes Central Line Lumen Inserted: triple Post Procedure: Sutured in Place, Good Blood Return, All Ports Aspirated, Flushed, Capped, Sterile Dressing Applied Secured by: Suture Post Procedure X-Ray: Yes Patient Tolerated Procedure: Well Immediate Complications: None
[2018-03-02 17:50] LABS: ABG ALLEN TEST UNABLE; ARTERIAL BLOOD GAS HCO3 28.3 mmol/L (21-28); ARTERIAL BLOOD GAS O2 SAT 99.1 % (95-98); ARTERIAL BLOOD GAS PCO2 50 mm/Hg (35-45); ARTERIAL BLOOD GAS PH 7.39 (7.35-7.45); ARTERIAL BLOOD GAS PO2 274 mm/Hg (80-100); ARTERIAL BLOOD GAS TCO2 31.8 mmol/L (22-28)
[2018-03-03] MEDS: Albuterol-Ipratrop 3 mg / 0.5 (3 ml) UD INH SCH ×6 (00:17→20:17)
[2018-03-03] MEDS: Propofol 10 mg/ml 1,000 MG/100 ML VIAL IV PRN ×4 (03:07→08:25)
[2018-03-03] MEDS: Cefepime IV 1 gm in Dextrose 1 GM/50 ML BAG IVPB SCH (04:00)
[2018-03-03 05:45] LABS: ABG ALLEN TEST POS; ARTERIAL BLOOD GAS HCO3 30.1 mmol/L (21-28); ARTERIAL BLOOD GAS HEMOGLOBIN 10.4 g/dL (11.7-17.4); ARTERIAL BLOOD GAS O2 SAT 98.5 % (95-98); ARTERIAL BLOOD GAS PCO2 39 mm/Hg (35-45); ARTERIAL BLOOD GAS PO2 103 mm/Hg (80-100); ARTERIAL BLOOD GAS TCO2 31.6 mmol/L (22-28)
[2018-03-03 06:21] LABS: BASO % 0.3 % (0.0-2.0); EOS # 0.2 K/uL (0.0-0.7); EOS % 1.6 % (0.0-4.0); HEMOGLOBIN 10.2 g/dL (12.0-18.0); LYMPH # 1.6 K/uL (1.0-4.3); LYMPH % 10.7 % (20.0-40.0); MEAN CELL VOLUME 85.5 fL (80.0-94.0); MEAN CORPUSCULAR HEMOGLOBIN 27.5 pg (27.0-31.0); MEAN CORPUSCULAR HGB CONC 32.1 g/dL (33.0-37.0); MEAN PLATELET VOLUME 7.8 fL (7.2-11.7); MONO # 1.7 K/uL (0.0-0.8); MONO % 11.2 % (0.0-10.0); NEUT # 11.4 K/uL (1.8-7.0); NEUT % 76.2 % (50.0-75.0); RBC 3.71 Mil/uL (4.40-5.90); RED CELL DISTRIBUTION WIDTH 16.7 % (11.5-14.5); WHITE BLOOD COUNT 14.9 K/uL (4.8-10.8)
[2018-03-03 06:44] LABS: ALB/GLOB RATIO 0.9 (1.0-2.1); ALBUMIN 2.9 g/dL (3.5-5.0); ALT/SGPT 33 U/L (21-72); AST/SGOT 24 U/L (17-59); BLOOD UREA NITROGEN 19 mg/dL (9-20); CALCIUM 9.3 mg/dl (8.6-10.4); GFR AFRICAN-AMERICAN > 60; GFR NON-AFRICAN AMERICAN > 60
--- NOTE | 2018-03-03 07:31 | PN ---
DATE: 03/02/2018 The patient is short of breath. He is using BiPAP. He is using blood gas. Very difficult patient, discussed in detail with nurse practitioner Sarah . I explained to him that he can have a cardiac arrest if he does not put the BiPAP and does not allow the blood gas. Marixa Panchal MD
--- NOTE | 2018-03-03 08:10 | CP.CCUPN ---
<Nii Santos S - Last Filed: 03/03/18 11:10> CCU Subjective - Physician Review Subjective (Free Text): 03/03/18 08:07 Patient seen and examined. Patient intubated and sedated on Propofol. No acute events noted. CCU Objective - Vital Signs / Intake & Output Vital Signs (Last 4 hours): Vital Signs Pulse Resp BP Pulse Ox 03/03/18 07:30 94 H 18 100 03/03/18 07:20 95 H 18 100 03/03/18 07:10 95 H 18 100 03/03/18 07:06 91 H 18 146/90 100 03/03/18 07:00 93 H 18 100 03/03/18 06:50 93 H 18 100 03/03/18 06:40 94 H 18 100 03/03/18 06:30 95 H 16 100 03/03/18 06:20 96 H 17 100 03/03/18 06:10 94 H 18 100 03/03/18 06:05 94 H 17 163/90 H 100 03/03/18 06:00 94 H 18 100 03/03/18 05:50 93 H 15 100 03/03/18 05:40 96 H 18 100 03/03/18 05:30 95 H 17 100 03/03/18 05:20 94 H 15 100 03/03/18 05:10 94 H 14 100 03/03/18 05:06 95 H 16 139/86 100 03/03/18 05:00 94 H 17 100 03/03/18 04:50 95 H 18 100 03/03/18 04:40 95 H 18 100 03/03/18 04:30 94 H 18 100 03/03/18 04:20 98 H 18 100 03/03/18 04:10 102 H 18 100 Intake and Output (Last 8hrs): Intake & Output 03/02/18 03/03/18 03/03/18 22:59 06:59 14:59 Intake Total 476.8 542.0 42 Output Total 1045 700 80 Balance -568.2 -158.0 -38 Weight 379 lb Intake: IV 200 300 Intake, IV Amount 276.8 242.0 42 Left Wrist 64.8 Right Distal Port 50 Internal Jugular Right Proximal Port 162.0 242.0 42 Internal Jugular Output: Urine 1045 700 80 Urethral (Briseno) 1045 700 80 - Physical Exam Physical Exam Limitations: Positive for: Other (Intubated/sedated. Severely morbidly obese) Head: Positive for: Atraumatic, Normocephalic Pupils: Positive for: Sluggish Conjunctiva: Positive for: Normal Mouth: Positive for: Moist Mucous Membranes Neck: Positive for: Other (right IJ TLC) Respiratory/Chest: Positive for: Decreased Breath Sounds, Other (Coarse breath sounds). Negative for: Wheezes, Rales, Rhonchi Cardiovascular: Positive for: Regular Rate and Rhythm, Normal S1, S2 Abdomen: Positive for: Normal Bowel Sounds. Negative for: Tenderness Upper Extremity: Negative for: Edema Lower Extremity: Positive for: Other (left lateral leg wound) Skin: Positive for: Warm, Dry - Medications Active Medications: Active Medications Generic Name Dose Route Start Last Admin Trade Name Freq PRN Reason Stop Dose Admin Albuterol/Ipratropium 3 ml 03/01/18 00:00 03/03/18 03:25 Duoneb 3 Mg/0.5 Mg (3 Ml) Ud INH 3 ml RQ4 LACHO Administration Enalapril Maleate 10 mg 03/03/18 10:00 Vasotec PO DAILY LACHO Enoxaparin Sodium 40 mg 03/01/18 10:00 03/02/18 09:23 Lovenox SC 40 mg DAILY LACHO Administration Vancomycin/Sodium Chloride 1 gm in 200 mls @ 133.333 mls/hr 02/28/18 23:30 23:30 Vancomycin 1 Gm/Ns 200 Ml IVPB 133.333 mls/hr Q12H LACHO Administration Protocol Cefepime HCl 1 gm in 50 mls @ 100 mls/hr 03/01/18 16:00 03/03/18 04:00 Maxipime Iv 1 Gm Premix IVPB 100 mls/hr Q12H LACHO Administration Protocol Propofol 1,000 mg in 100 mls @ 5.156 mls/hr 03/02/18 15:09 03/03/18 05:57 Diprivan IV 38.8 mcg/kg/min .[id number] PRN 40.01 mls/hr TITRATE PER MD ORDER Administration Protocol 5 MCG/KG/MIN Oxycodone/Acetaminophen 1 tab 02/28/18 23:02 03/01/18 19:35 Percocet 5/325 Mg Tab PO 03/03/18 23:03 1 tab Q4H PRN Administration pain Pantoprazole Sodium 40 mg 03/03/18 10:00 Protonix Inj IVP DAILY LACHO Pneumococcal Polyvalent Vaccine 0.5 ml 03/03/18 14:00 Pneumovax 23 Vaccine IM 03/03/18 14:01 .ONCE ONE - Patient Studies Lab Studies: Microbiology Studies 02/28/18 20:30 Blood Culture - Preliminary Blood NO GROWTH AFTER 48 HOURS 02/28/18 19:25 Blood Culture - Preliminary Blood NO GROWTH AFTER 48 HOURS 02/28/18 21:05 Urine Culture - Final Urine,Clean Catch No Growth (<1,000 CFU/ML) 03/01/18 00:41 Gram Stain - Final Leg - Left Wound Culture - Preliminary Gram Negative Lokesh Gram Positive Cocci Lab Studies 03/03/18 03/03/18 03/03/18 Range/Units 06:17 06:16 05:35 WBC 14.9 H (4.8-10.8) K/uL RBC 3.71 L (4.40-5.90) Mil/uL Hgb 10.2 L (12.0-18.0) g/dL Hct 31.7 L (35.0-51.0) % MCV 85.5 (80.0-94.0) fL MCH 27.5 (27.0-31.0) pg MCHC 32.1 L (33.0-37.0) g/dL RDW 16.7 H (11.5-14.5) % Plt Count 304 (130-400) K/uL MPV 7.8 (7.2-11.7) fL Neut % (Auto) 76.2 H (50.0-75.0) % Lymph % (Auto) 10.7 L (20.0-40.0) % [place] % (Auto) 11.2 H (0.0-10.0) % Eos % (Auto) 1.6 (0.0-4.0) % Baso % (Auto) 0.3 (0.0-2.0) % Neut # (Auto) 11.4 H (1.8-7.0) K/uL Lymph # (Auto) 1.6 (1.0-4.3) K/uL [place] # (Auto) 1.7 H (0.0-0.8) K/uL Eos # (Auto) 0.2 (0.0-0.7) K/uL Baso # (Auto) 0.0 (0.0-0.2) K/uL Puncture Site Rr pCO2 39 (35-45) mm/Hg pO2 103 H (80-100) mm/Hg HCO3 30.1 H (21-28) mmol/L ABG pH 7.50 H (7.35-7.45) ABG Total CO2 31.6 H (22-28) mmol/L ABG O2 Saturation 98.5 H (95-98) % ABG Base Excess 6.7 H (-2.0-3.0) mmol/L ABG Hemoglobin 10.4 L (11.7-17.4) g/dL ABG Carboxyhemoglobin 1.5 (0.5-1.5) % POC ABG HHb (Measured) 1.5 (0.0-5.0) % ABG Methemoglobin 1.3 (0.0-3.0) % Victoriano Test Pos ABG Potassium (3.6-5.2) mmol/L A-a O2 Difference 276.0 mm/Hg Respiratory Index 2.7 Hgb O2 Saturation 95.8 (95.0-98.0) % Glucose (75-110) mg/dl Lactate (0.7-2.1) mmol/L Liter Flow Vent Mode Prvc Mechanical Rate 18 FiO2 60.0 % Tidal Volume 550 PEEP 5 Crit Value Called To Crit Value Called By Crit Value Read Back Blood Gas Notified Time Sodium 141 (132-148) mmol/L Potassium 3.6 (3.6-5.2) mmol/L Chloride 103 (98-107) mmol/L Carbon Dioxide 30 (22-30) mmol/L Anion Gap 11 (10-20) BUN 19 (9-20) mg/dL Creatinine 1.2 (0.8-1.5) mg/dL Est GFR ( Amer) > 60 Est GFR (Non-Af Amer) > 60 Random Glucose 94 (75-110) mg/dL Calcium 9.3 (8.6-10.4) mg/dl Phosphorus 1.8 L (2.5-4.5) mg/dL Magnesium 1.7 (1.6-2.3) mg/dL Total Bilirubin 0.7 (0.2-1.3) mg/dL AST 24 (17-59) U/L ALT 33 (21-72) U/L Alkaline Phosphatase 68 (38-126) U/L Total Protein 6.4 (6.3-8.3) g/dL Albumin 2.9 L D (3.5-5.0) g/dL Globulin 3.4 (2.2-3.9) gm/dL Albumin/Globulin Ratio 0.9 L (1.0-2.1) Arterial Blood Potassium (3.6-5.2) mmol/L Urine Color (YELLOW) Urine Clarity (Clear) Urine pH (5.0-8.0) Ur Specific [place] (1.003-1.030) Urine Protein (NEGATIVE) mg/dL Urine Glucose (UA) (Normal) mg/dL Urine Ketones (NEGATIVE) mg/dL Urine Blood (NEGATIVE) Urine Nitrate (NEGATIVE) Urine Bilirubin (NEGATIVE) Urine Urobilinogen (0.2-1.0) mg/dL Ur Leukocyte Esterase (Negative) Jatin/uL Urine WBC (Auto) (0-5) /hpf Urine RBC (Auto) (0-3) /hpf Ur Squamous Epith Cells (0-5) /hpf Amorphous Sediment (<OCC) /ul Urine Bacteria (<OCC) Vancomycin Trough (5.0-10.0) ug/mL Hepatitis A IgM Ab (NEGATIVE) Hep Bs Antigen (NEGATIVE) Hep B Core IgM Ab (NEGATIVE) Hepatitis C Antibody (NEGATIVE) HIV 1&2 Antibody Screen (NEGATIVE) 03/02/18 03/02/18 03/02/18 Range/Units 17:47 15:42 11:24 WBC (4.8-10.8) K/uL RBC (4.40-5.90) Mil/uL Hgb (12.0-18.0) g/dL Hct (35.0-51.0) % MCV (80.0-94.0) fL MCH (27.0-31.0) pg MCHC (33.0-37.0) g/dL RDW (11.5-14.5) % Plt Count (130-400) K/uL MPV (7.2-11.7) fL Neut % (Auto) (50.0-75.0) % Lymph % (Auto) (20.0-40.0) % [place] % (Auto) (0.0-10.0) % Eos % (Auto) (0.0-4.0) % Baso % (Auto) (0.0-2.0) % Neut # (Auto) (1.8-7.0) K/uL Lymph # (Auto) (1.0-4.3) K/uL [place] # (Auto) (0.0-0.8) K/uL Eos # (Auto) (0.0-0.7) K/uL Baso # (Auto) (0.0-0.2) K/uL Puncture Site Rr pCO2 50 H (35-45) mm/Hg pO2 274 H (80-100) mm/Hg HCO3 28.3 H (21-28) mmol/L ABG pH 7.39 (7.35-7.45) ABG Total CO2 31.8 H (22-28) mmol/L ABG O2 Saturation 99.1 H (95-98) % ABG Base Excess 4.2 H (-2.0-3.0) mmol/L ABG Hemoglobin (11.7-17.4) g/dL ABG Carboxyhemoglobin (0.5-1.5) % POC ABG HHb (Measured) (0.0-5.0) % ABG Methemoglobin (0.0-3.0) % Victoriano Test Unable ABG Potassium 3.7 (3.6-5.2) mmol/L A-a O2 Difference 377.0 mm/Hg Respiratory Index 1.4 Hgb O2 Saturation (95.0-98.0) % Glucose 99 (75-110) mg/dl Lactate 0.7 (0.7-2.1) mmol/L Liter Flow Vent Mode Prvc Mechanical Rate 18 FiO2 100.0 % Tidal Volume 550 PEEP 5 Crit Value Called To Crit Value Called By Crit Value Read Back Blood Gas Notified Time Sodium 139.0 (132-148) mmol/L Potassium (3.6-5.2) mmol/L Chloride 109.0 H (98-107) mmol/L Carbon Dioxide (22-30) mmol/L Anion Gap (10-20) BUN (9-20) mg/dL Creatinine (0.8-1.5) mg/dL Est GFR ( Amer) Est GFR (Non-Af Amer) Random Glucose (75-110) mg/dL Calcium (8.6-10.4) mg/dl Phosphorus (2.5-4.5) mg/dL Magnesium (1.6-2.3) mg/dL Total Bilirubin (0.2-1.3) mg/dL AST (17-59) U/L ALT (21-72) U/L Alkaline Phosphatase (38-126) U/L Total Protein (6.3-8.3) g/dL Albumin (3.5-5.0) g/dL Globulin (2.2-3.9) gm/dL Albumin/Globulin Ratio (1.0-2.1) Arterial Blood Potassium 3.7 (3.6-5.2) mmol/L Urine Color Yellow (YELLOW) Urine Clarity Hazy (Clear) Urine pH 5.0 (5.0-8.0) Ur Specific [place] 1.015 (1.003-1.030) Urine Protein 1+ H (NEGATIVE) mg/dL Urine Glucose (UA) Normal (Normal) mg/dL Urine Ketones Negative (NEGATIVE) mg/dL Urine Blood Negative (NEGATIVE) Urine Nitrate Negative (NEGATIVE) Urine Bilirubin Negative (NEGATIVE) Urine Urobilinogen Normal (0.2-1.0) mg/dL Ur Leukocyte Esterase Neg (Negative) Jatin/uL Urine WBC (Auto) 5 (0-5) /hpf Urine RBC (Auto) 6 H (0-3) /hpf Ur Squamous Epith Cells < 1 (0-5) /hpf Amorphous Sediment Rare H (<OCC) /ul Urine Bacteria Rare (<OCC) Vancomycin Trough 12.6 H (5.0-10.0) ug/mL Hepatitis A IgM Ab (NEGATIVE) Hep Bs Antigen (NEGATIVE) Hep B Core IgM Ab (NEGATIVE) Hepatitis C Antibody (NEGATIVE) HIV 1&2 Antibody Screen Negative (NEGATIVE) 03/02/18 03/02/18 03/02/18 Range/Units 11:24 11:24 11:24 WBC 14.4 H (4.8-10.8) K/uL RBC 3.97 L (4.40-5.90) Mil/uL Hgb 10.9 L (12.0-18.0) g/dL Hct 34.7 L (35.0-51.0) % MCV 87.3 (80.0-94.0) fL MCH 27.5 (27.0-31.0) pg MCHC 31.5 L (33.0-37.0) g/dL RDW 17.5 H (11.5-14.5) % Plt Count 344 (130-400) K/uL MPV 7.7 (7.2-11.7) fL Neut % (Auto) 80.7 H (50.0-75.0) % Lymph % (Auto) 12.0 L (20.0-40.0) % [place] % (Auto) 6.8 (0.0-10.0) % Eos % (Auto) 0.3 (0.0-4.0) % Baso % (Auto) 0.2 (0.0-2.0) % Neut # (Auto) 11.6 H (1.8-7.0) K/uL Lymph # (Auto) 1.7 (1.0-4.3) K/uL [place] # (Auto) 1.0 H (0.0-0.8) K/uL Eos # (Auto) 0.0 (0.0-0.7) K/uL Baso # (Auto) 0.0 (0.0-0.2) K/uL Puncture Site pCO2 (35-45) mm/Hg pO2 (80-100) mm/Hg HCO3 (21-28) mmol/L ABG pH (7.35-7.45) ABG Total CO2 (22-28) mmol/L ABG O2 Saturation (95-98) % ABG Base Excess (-2.0-3.0) mmol/L ABG Hemoglobin (11.7-17.4) g/dL ABG Carboxyhemoglobin (0.5-1.5) % POC ABG HHb (Measured) (0.0-5.0) % ABG Methemoglobin (0.0-3.0) % Victoriano Test ABG Potassium (3.6-5.2) mmol/L A-a O2 Difference mm/Hg Respiratory Index Hgb O2 Saturation (95.0-98.0) % Glucose (75-110) mg/dl Lactate (0.7-2.1) mmol/L Liter Flow Vent Mode Mechanical Rate FiO2 % Tidal Volume PEEP Crit Value Called To Crit Value Called By Crit Value Read Back Blood Gas Notified Time Sodium 143 (132-148) mmol/L Potassium 4.2 (3.6-5.2) mmol/L Chloride 100 (98-107) mmol/L Carbon Dioxide 33 H (22-30) mmol/L Anion Gap 14 (10-20) BUN 18 (9-20) mg/dL Creatinine 1.3 (0.8-1.5) mg/dL Est GFR ( Amer) > 60 Est GFR (Non-Af Amer) 57 Random Glucose 127 H (75-110) mg/dL Calcium 9.4 (8.6-10.4) mg/dl Phosphorus (2.5-4.5) mg/dL Magnesium (1.6-2.3) mg/dL Total Bilirubin 0.5 (0.2-1.3) mg/dL AST 29 (17-59) U/L ALT 26 (21-72) U/L Alkaline Phosphatase 84 (38-126) U/L Total Protein 7.8 (6.3-8.3) g/dL Albumin 3.7 (3.5-5.0) g/dL Globulin 4.1 H (2.2-3.9) gm/dL Albumin/Globulin Ratio 0.9 L (1.0-2.1) Arterial Blood Potassium (3.6-5.2) mmol/L Urine Color (YELLOW) Urine Clarity (Clear) Urine pH (5.0-8.0) Ur Specific [place] (1.003-1.030) Urine Protein (NEGATIVE) mg/dL Urine Glucose (UA) (Normal) mg/dL Urine Ketones (NEGATIVE) mg/dL Urine Blood (NEGATIVE) Urine Nitrate (NEGATIVE) Urine Bilirubin (NEGATIVE) Urine Urobilinogen (0.2-1.0) mg/dL Ur Leukocyte Esterase (Negative) Jatin/uL Urine WBC (Auto) (0-5) /hpf Urine RBC (Auto) (0-3) /hpf Ur Squamous Epith Cells (0-5) /hpf Amorphous Sediment (<OCC) /ul Urine Bacteria (<OCC) Vancomycin Trough (5.0-10.0) ug/mL Hepatitis A IgM Ab Negative (NEGATIVE) Hep Bs Antigen Negative (NEGATIVE) Hep B Core IgM Ab Negative (NEGATIVE) Hepatitis C Antibody Negative (NEGATIVE) HIV 1&2 Antibody Screen (NEGATIVE) 03/01/18 Range/Units 13:31 WBC (4.8-10.8) K/uL RBC (4.40-5.90) Mil/uL Hgb (12.0-18.0) g/dL Hct (35.0-51.0) % MCV (80.0-94.0) fL MCH (27.0-31.0) pg MCHC (33.0-37.0) g/dL RDW (11.5-14.5) % Plt Count (130-400) K/uL MPV (7.2-11.7) fL Neut % (Auto) (50.0-75.0) % Lymph % (Auto) (20.0-40.0) % [place] % (Auto) (0.0-10.0) % Eos % (Auto) (0.0-4.0) % Baso % (Auto) (0.0-2.0) % Neut # (Auto) (1.8-7.0) K/uL Lymph # (Auto) (1.0-4.3) K/uL [place] # (Auto) (0.0-0.8) K/uL Eos # (Auto) (0.0-0.7) K/uL Baso # (Auto) (0.0-0.2) K/uL Puncture Site Rra pCO2 90 H* (35-45) mm/Hg pO2 58 L (80-100) mm/Hg HCO3 23.0 (21-28) mmol/L ABG pH 7.12 L* (7.35-7.45) ABG Total CO2 32.1 H (22-28) mmol/L ABG O2 Saturation 88.7 L (95-98) % ABG Base Excess -2.1 L (-2.0-3.0) mmol/L ABG Hemoglobin 12.1 (11.7-17.4) g/dL ABG Carboxyhemoglobin 2.5 H (0.5-1.5) % POC ABG HHb (Measured) 10.9 H (0.0-5.0) % ABG Methemoglobin 0.9 (0.0-3.0) % Victoriano Test Pos ABG Potassium (3.6-5.2) mmol/L A-a O2 Difference mm/Hg Respiratory Index Hgb O2 Saturation 85.7 L (95.0-98.0) % Glucose (75-110) mg/dl Lactate (0.7-2.1) mmol/L Liter Flow 2.0 Vent Mode Mechanical Rate FiO2 % Tidal Volume PEEP Crit Value Called To Milton ramirez Crit Value Called By Axel sun landscape gardener Crit Value Read Back Y Blood Gas Notified Time 1334 Sodium (132-148) mmol/L Potassium (3.6-5.2) mmol/L Chloride (98-107) mmol/L Carbon Dioxide (22-30) mmol/L Anion Gap (10-20) BUN (9-20) mg/dL Creatinine (0.8-1.5) mg/dL Est GFR ( Amer) Est GFR (Non-Af Amer) Random Glucose (75-110) mg/dL Calcium (8.6-10.4) mg/dl Phosphorus (2.5-4.5) mg/dL Magnesium (1.6-2.3) mg/dL Total Bilirubin (0.2-1.3) mg/dL AST (17-59) U/L ALT (21-72) U/L Alkaline Phosphatase (38-126) U/L Total Protein (6.3-8.3) g/dL Albumin (3.5-5.0) g/dL Globulin (2.2-3.9) gm/dL Albumin/Globulin Ratio (1.0-2.1) Arterial Blood Potassium (3.6-5.2) mmol/L Urine Color (YELLOW) Urine Clarity (Clear) Urine pH (5.0-8.0) Ur Specific [place] (1.003-1.030) Urine Protein (NEGATIVE) mg/dL Urine Glucose (UA) (Normal) mg/dL Urine Ketones (NEGATIVE) mg/dL Urine Blood (NEGATIVE) Urine Nitrate (NEGATIVE) Urine Bilirubin (NEGATIVE) Urine Urobilinogen (0.2-1.0) mg/dL Ur Leukocyte Esterase (Negative) Jatin/uL Urine WBC (Auto) (0-5) /hpf Urine RBC (Auto) (0-3) /hpf Ur Squamous Epith Cells (0-5) /hpf Amorphous Sediment (<OCC) /ul Urine Bacteria (<OCC) Vancomycin Trough (5.0-10.0) ug/mL Hepatitis A IgM Ab (NEGATIVE) Hep Bs Antigen (NEGATIVE) Hep B Core IgM Ab (NEGATIVE) Hepatitis C Antibody (NEGATIVE) HIV 1&2 Antibody Screen (NEGATIVE) Laboratory Results - last 24 hr 03/01/18 03/02/18 03/02/18 13:31 11:24 11:24 WBC 14.4 H RBC 3.97 L Hgb 10.9 L Hct 34.7 L MCV 87.3 MCH 27.5 MCHC 31.5 L RDW 17.5 H Plt Count 344 MPV 7.7 Neut % (Auto) 80.7 H Lymph % (Auto) 12.0 L [place] % (Auto) 6.8 Eos % (Auto) 0.3 Baso % (Auto) 0.2 Neut # (Auto) 11.6 H Lymph # (Auto) 1.7 [place] # (Auto) 1.0 H Eos # (Auto) 0.0 Baso # (Auto) 0.0 Puncture Site Rra pCO2 90 H* pO2 58 L HCO3 23.0 ABG pH 7.12 L* ABG Total CO2 32.1 H ABG O2 Saturation 88.7 L ABG Base Excess -2.1 L ABG Hemoglobin 12.1 ABG Carboxyhemoglobin 2.5 H POC ABG HHb (Measured) 10.9 H ABG Methemoglobin 0.9 Victoriano Test Pos ABG Potassium A-a O2 Difference Respiratory Index Hgb O2 Saturation 85.7 L Glucose Lactate Liter Flow 2.0 Vent Mode Mechanical Rate FiO2 Tidal Volume PEEP Crit Value Called To Milton ramirez Crit Value Called By Axel sun landscape gardener Crit Value Read Back Y Blood Gas Notified Time 1334 Sodium 143 Potassium 4.2 Chloride 100 Carbon Dioxide 33 H Anion Gap 14 BUN 18 Creatinine 1.3 Est GFR ( Amer) > 60 Est GFR (Non-Af Amer) 57 Random Glucose 127 H Calcium 9.4 Phosphorus Magnesium Total Bilirubin 0.5 AST 29 ALT 26 Alkaline Phosphatase 84 Total Protein 7.8 Albumin 3.7 Globulin 4.1 H Albumin/Globulin Ratio 0.9 L Arterial Blood Potassium Urine Color Urine Clarity Urine pH Ur Specific [place] Urine Protein Urine Glucose (UA) Urine Ketones Urine Blood Urine Nitrate Urine Bilirubin Urine Urobilinogen Ur Leukocyte Esterase Urine WBC (Auto) Urine RBC (Auto) Ur Squamous Epith Cells Amorphous Sediment Urine Bacteria Vancomycin Trough Hepatitis A IgM Ab Hep Bs Antigen Hep B Core IgM Ab Hepatitis C Antibody HIV 1&2 Antibody Screen 03/02/18 03/02/18 03/02/18 11:24 11:24 15:42 WBC RBC Hgb Hct MCV MCH MCHC RDW Plt Count MPV Neut % (Auto) Lymph % (Auto) [place] % (Auto) Eos % (Auto) Baso % (Auto) Neut # (Auto) Lymph # (Auto) [place] # (Auto) Eos # (Auto) Baso # (Auto) Puncture Site pCO2 pO2 HCO3 ABG pH ABG Total CO2 ABG O2 Saturation ABG Base Excess ABG Hemoglobin ABG Carboxyhemoglobin POC ABG HHb (Measured) ABG Methemoglobin Victoriano Test ABG Potassium A-a O2 Difference Respiratory Index Hgb O2 Saturation Glucose Lactate Liter Flow Vent Mode Mechanical Rate FiO2 Tidal Volume PEEP Crit Value Called To Crit Value Called By Crit Value Read Back Blood Gas Notified Time Sodium Potassium Chloride Carbon Dioxide Anion Gap BUN Creatinine Est GFR ( Amer) Est GFR (Non-Af Amer) Random Glucose Calcium Phosphorus Magnesium Total Bilirubin AST ALT Alkaline Phosphatase Total Protein Albumin Globulin Albumin/Globulin Ratio Arterial Blood Potassium Urine Color Yellow Urine Clarity Hazy Urine pH 5.0 Ur Specific [place] 1.015 Urine Protein 1+ H Urine Glucose (UA) Normal Urine Ketones Negative Urine Blood Negative Urine Nitrate Negative Urine Bilirubin Negative Urine Urobilinogen Normal Ur Leukocyte Esterase Neg Urine WBC (Auto) 5 Urine RBC (Auto) 6 H Ur Squamous Epith Cells < 1 Amorphous Sediment Rare H Urine Bacteria Rare Vancomycin Trough 12.6 H Hepatitis A IgM Ab Negative Hep Bs Antigen Negative Hep B Core IgM Ab Negative Hepatitis C Antibody Negative HIV 1&2 Antibody Screen Negative 03/02/18 03/03/18 03/03/18 17:47 05:35 06:16 WBC 14.9 H RBC 3.71 L Hgb 10.2 L Hct 31.7 L MCV 85.5 MCH 27.5 MCHC 32.1 L RDW 16.7 H Plt Count 304 MPV 7.8 Neut % (Auto) 76.2 H Lymph % (Auto) 10.7 L [place] % (Auto) 11.2 H Eos % (Auto) 1.6 Baso % (Auto) 0.3 Neut # (Auto) 11.4 H Lymph # (Auto) 1.6 [place] # (Auto) 1.7 H Eos # (Auto) 0.2 Baso # (Auto) 0.0 Puncture Site Rr Rr pCO2 50 H 39 pO2 274 H 103 H HCO3 28.3 H 30.1 H ABG pH 7.39 7.50 H ABG Total CO2 31.8 H 31.6 H ABG O2 Saturation 99.1 H 98.5 H ABG Base Excess 4.2 H 6.7 H ABG Hemoglobin 10.4 L ABG Carboxyhemoglobin 1.5 POC ABG HHb (Measured) 1.5 ABG Methemoglobin 1.3 Victoriano Test Unable Pos ABG Potassium 3.7 A-a O2 Difference 377.0 276.0 Respiratory Index 1.4 2.7 Hgb O2 Saturation 95.8 Glucose 99 Lactate 0.7 Liter Flow Vent Mode Prvc Prvc Mechanical Rate 18 18 FiO2 100.0 60.0 Tidal Volume 550 550 PEEP 5 5 Crit Value Called To Crit Value Called By Crit Value Read Back Blood Gas Notified Time Sodium 139.0 Potassium Chloride 109.0 H Carbon Dioxide Anion Gap BUN Creatinine Est GFR ( Amer) Est GFR (Non-Af Amer) Random Glucose Calcium Phosphorus Magnesium Total Bilirubin AST ALT Alkaline Phosphatase Total Protein Albumin Globulin Albumin/Globulin Ratio Arterial Blood Potassium 3.7 Urine Color Urine Clarity Urine pH Ur Specific [place] Urine Protein Urine Glucose (UA) Urine Ketones Urine Blood Urine Nitrate Urine Bilirubin Urine Urobilinogen Ur Leukocyte Esterase Urine WBC (Auto) Urine RBC (Auto) Ur Squamous Epith Cells Amorphous Sediment Urine Bacteria Vancomycin Trough Hepatitis A IgM Ab Hep Bs Antigen Hep B Core IgM Ab Hepatitis C Antibody HIV 1&2 Antibody Screen 03/03/18 06:17 WBC RBC Hgb Hct MCV MCH MCHC RDW Plt Count MPV Neut % (Auto) Lymph % (Auto) [place] % (Auto) Eos % (Auto) Baso % (Auto) Neut # (Auto) Lymph # (Auto) [place] # (Auto) Eos # (Auto) Baso # (Auto) Puncture Site pCO2 pO2 HCO3 ABG pH ABG Total CO2 ABG O2 Saturation ABG Base Excess ABG Hemoglobin ABG Carboxyhemoglobin POC ABG HHb (Measured) ABG Methemoglobin Victoriano Test ABG Potassium A-a O2 Difference Respiratory Index Hgb O2 Saturation Glucose Lactate Liter Flow Vent Mode Mechanical Rate FiO2 Tidal Volume PEEP Crit Value Called To Crit Value Called By Crit Value Read Back Blood Gas Notified Time Sodium 141 Potassium 3.6 Chloride 103 Carbon Dioxide 30 Anion Gap 11 BUN 19 Creatinine 1.2 Est GFR ( Amer) > 60 Est GFR (Non-Af Amer) > 60 Random Glucose 94 Calcium 9.3 Phosphorus 1.8 L Magnesium 1.7 Total Bilirubin 0.7 AST 24 ALT 33 Alkaline Phosphatase 68 Total Protein 6.4 Albumin 2.9 L D Globulin 3.4 Albumin/Globulin Ratio 0.9 L Arterial Blood Potassium Urine Color Urine Clarity Urine pH Ur Specific Emerson Urine Protein Urine Glucose (UA) Urine Ketones Urine Blood Urine Nitrate Urine Bilirubin Urine Urobilinogen Ur Leukocyte Esterase Urine WBC (Auto) Urine RBC (Auto) Ur Squamous Epith Cells Amorphous Sediment Urine Bacteria Vancomycin Trough Hepatitis A IgM Ab Hep Bs Antigen Hep B Core IgM Ab Hepatitis C Antibody HIV 1&2 Antibody Screen Assessment/Plan - Assessment and Plan (Free Text) Assessment: This is a 57 year old morbidly obese male with PMHx HTN who presented to the hospital for shortness of breath. Patient was transferred to the ICU for impending respiratory failure. Patient intubated by anesthesia using Glidoscope. Plan is to switch sedation to Precedex and initiate pressure support to wean off the ventilator. If patient tolerates, will plan for extubation. Neuro Intubated and sedated with Precedex Diprivan discontinued Cardio Assessment: Hx of HTN Home Vasotec 10 mg PO daily Pulm Assessment: Hypercapnic Respiratory Failure Duoneb Q4H LACHO Vented Initiate pressure support and weaning trials Possible extubation later in the day if tolerated GI NPO for now, if unable to extubate, will initiate Jevity feedings Protonix 40 mg IV daily Infectious Disease Assessment: Left leg wound (Pseudomonas and MSSA) ID on consult Vancomycin and Cefepime were discontinued in favor of Zosyn 3.375 gm Q6H Prophylaxis Lovenox 40 mg SC daily Protonix 40 mg IV daily Discussed with Dr. Kwan <Rodney Kwan - Last Filed: 03/03/18 13:45> CCU Objective - Vital Signs / Intake & Output Vital Signs (Last 4 hours): Vital Signs Temp Pulse Resp BP Pulse Ox 03/03/18 13:01 101 H 18 108/59 L 100 03/03/18 13:00 99 H 18 100 03/03/18 12:01 123 H 23 175/95 H 100 03/03/18 12:00 98.6 F 126 H 32 H 100 03/03/18 11:00 99 H 18 152/87 H 100 03/03/18 10:58 146/94 H 03/03/18 10:00 97 H 14 146/94 H 100 Intake and Output (Last 8hrs): Intake & Output 03/02/18 03/03/18 03/03/18 22:59 06:59 14:59 Intake Total 476.8 542.0 457.5 Output Total 5145 992 1000 Balance -568.2 -158.0 -842.5 Weight 379 lb Intake: IV 200 300 120 Intake, IV Amount 276.8 242.0 277.5 Left Wrist 64.8 Right Distal Port 50 50 Internal Jugular Right Proximal Port 162.0 242.0 227.5 Internal Jugular Other 60 Output: Urine [phone] Urethral (Briseno) [id number] - Medications Active Medications: Active Medications Generic Name Dose Route Start Last Admin Trade Name Freq PRN Reason Stop Dose Admin Acetazolamide 500 mg 03/03/18 10:15 03/03/18 10:56 Diamox 500 Mg Inj IV 03/03/18 22:01 500 mg Q12 LACHO Administration Albuterol/Ipratropium 3 ml 03/01/18 00:00 03/03/18 03:25 Duoneb 3 Mg/0.5 Mg (3 Ml) Ud INH 3 ml RQ4 LACHO Administration Enalapril Maleate 10 mg 03/03/18 10:00 03/03/18 09:09 Vasotec PO 10 mg DAILY LACHO Administration Enoxaparin Sodium 40 mg 03/01/18 10:00 03/03/18 09:09 Lovenox SC 40 mg DAILY LACHO Administration Propofol 1,000 mg in 100 mls @ 5.156 mls/hr 03/02/18 15:09 03/03/18 08:25 Diprivan IV 38.8 mcg/kg/min .[id number] PRN 40.01 mls/hr TITRATE PER MD ORDER Administration Protocol 5 MCG/KG/MIN Piperacillin Sod/Tazobactam Sod 3.375 gm in 50 mls @ 100 mls/hr 03/03/18 11: 00 03/03/18 11:00 Zosyn 3.375 Gm Iv Premix IVPB 100 mls/hr Q6H LACHO Administration Protocol Dexmedetomidine HCl 400 mcg/ 100 mls @ 8.59 mls/hr 03/03/18 12:00 03/03/18 12 :29 Sodium Chloride IV 0.6 mcg/kg/hr TITR PRN 25.78 mls/hr Agitation Administration Protocol 0.2 MCG/KG/HR Oxycodone/Acetaminophen 1 tab 02/28/18 23:02 03/01/18 19:35 Percocet 5/325 Mg Tab PO 03/03/18 23:03 1 tab Q4H PRN Administration pain Pantoprazole Sodium 40 mg 03/03/18 10:00 03/03/18 09:08 Protonix Inj IVP 40 mg DAILY LACHO Administration Pneumococcal Polyvalent Vaccine 0.5 ml 03/03/18 14:00 Pneumovax 23 Vaccine IM 03/03/18 14:01 .ONCE ONE - Patient Studies Lab Studies: Microbiology Studies 03/01/18 13:00 Gram Stain - Final Sputum Sputum Culture - Final NORMAL ORAL MICHELLE 03/01/18 00:41 Gram Stain - Final Leg - Left Wound Culture - Final Pseudomonas Aeruginosa Staphylococcus Aureus 02/28/18 20:30 Blood Culture - Preliminary Blood NO GROWTH AFTER 48 HOURS 02/28/18 19:25 Blood Culture - Preliminary Blood NO GROWTH AFTER 48 HOURS 02/28/18 21:05 Urine Culture - Final Urine,Clean Catch No Growth (<1,000 CFU/ML) Lab Studies 03/03/18 03/03/18 03/03/18 Range/Units 06:17 06:16 05:35 WBC 14.9 H (4.8-10.8) K/uL RBC 3.71 L (4.40-5.90) Mil/uL Hgb 10.2 L (12.0-18.0) g/dL Hct 31.7 L (35.0-51.0) % MCV 85.5 (80.0-94.0) fL MCH 27.5 (27.0-31.0) pg MCHC 32.1 L (33.0-37.0) g/dL RDW 16.7 H (11.5-14.5) % Plt Count 304 (130-400) K/uL MPV 7.8 (7.2-11.7) fL Neut % (Auto) 76.2 H (50.0-75.0) % Lymph % (Auto) 10.7 L (20.0-40.0) % [place] % (Auto) 11.2 H (0.0-10.0) % Eos % (Auto) 1.6 (0.0-4.0) % Baso % (Auto) 0.3 (0.0-2.0) % Neut # (Auto) 11.4 H (1.8-7.0) K/uL Lymph # (Auto) 1.6 (1.0-4.3) K/uL [place] # (Auto) 1.7 H (0.0-0.8) K/uL Eos # (Auto) 0.2 (0.0-0.7) K/uL Baso # (Auto) 0.0 (0.0-0.2) K/uL Puncture Site Rr pCO2 39 (35-45) mm/Hg pO2 103 H (80-100) mm/Hg HCO3 30.1 H (21-28) mmol/L ABG pH 7.50 H (7.35-7.45) ABG Total CO2 31.6 H (22-28) mmol/L ABG O2 Saturation 98.5 H (95-98) % ABG Base Excess 6.7 H (-2.0-3.0) mmol/L ABG Hemoglobin 10.4 L (11.7-17.4) g/dL ABG Carboxyhemoglobin 1.5 (0.5-1.5) % POC ABG HHb (Measured) 1.5 (0.0-5.0) % ABG Methemoglobin 1.3 (0.0-3.0) % Victoriano Test Pos ABG Potassium (3.6-5.2) mmol/L A-a O2 Difference 276.0 mm/Hg Respiratory Index 2.7 Hgb O2 Saturation 95.8 (95.0-98.0) % Sodium 141 (132-148) mmol/l Chloride 103 (98-107) mmol/L Glucose (75-110) mg/dl Lactate (0.7-2.1) mmol/L Vent Mode Prvc Mechanical Rate 18 FiO2 60.0 % Tidal Volume 550 PEEP 5 Potassium 3.6 (3.6-5.2) mmol/L Carbon Dioxide 30 (22-30) mmol/L Anion Gap 11 (10-20) BUN 19 (9-20) mg/dL Creatinine 1.2 (0.8-1.5) mg/dL Est GFR ( Amer) > 60 Est GFR (Non-Af Amer) > 60 Random Glucose 94 (75-110) mg/dL Calcium 9.3 (8.6-10.4) mg/dl Phosphorus 1.8 L (2.5-4.5) mg/dL Magnesium 1.7 (1.6-2.3) mg/dL Total Bilirubin 0.7 (0.2-1.3) mg/dL AST 24 (17-59) U/L ALT 33 (21-72) U/L Alkaline Phosphatase 68 (38-126) U/L Total Protein 6.4 (6.3-8.3) g/dL Albumin 2.9 L D (3.5-5.0) g/dL Globulin 3.4 (2.2-3.9) gm/dL Albumin/Globulin Ratio 0.9 L (1.0-2.1) Arterial Blood Potassium (3.6-5.2) mmol/L Urine Color (YELLOW) Urine Clarity (Clear) Urine pH (5.0-8.0) Ur Specific Emerson (1.003-1.030) Urine Protein (NEGATIVE) mg/dL Urine Glucose (UA) (Normal) mg/dL Urine Ketones (NEGATIVE) mg/dL Urine Blood (NEGATIVE) Urine Nitrate (NEGATIVE) Urine Bilirubin (NEGATIVE) Urine Urobilinogen (0.2-1.0) mg/dL Ur Leukocyte Esterase (Negative) Jatin/uL Urine WBC (Auto) (0-5) /hpf Urine RBC (Auto) (0-3) /hpf Ur Squamous Epith Cells (0-5) /hpf Amorphous Sediment (<OCC) /ul Urine Bacteria (<OCC) 03/02/18 03/02/18 Range/Units 17:47 15:42 WBC (4.8-10.8) K/uL RBC (4.40-5.90) Mil/uL Hgb (12.0-18.0) g/dL Hct (35.0-51.0) % MCV (80.0-94.0) fL MCH (27.0-31.0) pg MCHC (33.0-37.0) g/dL RDW (11.5-14.5) % Plt Count (130-400) K/uL MPV (7.2-11.7) fL Neut % (Auto) (50.0-75.0) % Lymph % (Auto) (20.0-40.0) % [place] % (Auto) (0.0-10.0) % Eos % (Auto) (0.0-4.0) % Baso % (Auto) (0.0-2.0) % Neut # (Auto) (1.8-7.0) K/uL Lymph # (Auto) (1.0-4.3) K/uL [place] # (Auto) (0.0-0.8) K/uL Eos # (Auto) (0.0-0.7) K/uL Baso # (Auto) (0.0-0.2) K/uL Puncture Site Rr pCO2 50 H (35-45) mm/Hg pO2 274 H (80-100) mm/Hg HCO3 28.3 H (21-28) mmol/L ABG pH 7.39 (7.35-7.45) ABG Total CO2 31.8 H (22-28) mmol/L ABG O2 Saturation 99.1 H (95-98) % ABG Base Excess 4.2 H (-2.0-3.0) mmol/L ABG Hemoglobin (11.7-17.4) g/dL ABG Carboxyhemoglobin (0.5-1.5) % POC ABG HHb (Measured) (0.0-5.0) % ABG Methemoglobin (0.0-3.0) % Victoriano Test Unable ABG Potassium 3.7 (3.6-5.2) mmol/L A-a O2 Difference 377.0 mm/Hg Respiratory Index 1.4 Hgb O2 Saturation (95.0-98.0) % Sodium 139.0 (132-148) mmol/l Chloride 109.0 H (98-107) mmol/L Glucose 99 (75-110) mg/dl Lactate 0.7 (0.7-2.1) mmol/L Vent Mode Prvc Mechanical Rate 18 FiO2 100.0 % Tidal Volume 550 PEEP 5 Potassium (3.6-5.2) mmol/L Carbon Dioxide (22-30) mmol/L Anion Gap (10-20) BUN (9-20) mg/dL Creatinine (0.8-1.5) mg/dL Est GFR ( Amer) Est GFR (Non-Af Amer) Random Glucose (75-110) mg/dL Calcium (8.6-10.4) mg/dl Phosphorus (2.5-4.5) mg/dL Magnesium (1.6-2.3) mg/dL Total Bilirubin (0.2-1.3) mg/dL AST (17-59) U/L ALT (21-72) U/L Alkaline Phosphatase (38-126) U/L Total Protein (6.3-8.3) g/dL Albumin (3.5-5.0) g/dL Globulin (2.2-3.9) gm/dL Albumin/Globulin Ratio (1.0-2.1) Arterial Blood Potassium 3.7 (3.6-5.2) mmol/L Urine Color Yellow (YELLOW) Urine Clarity Hazy (Clear) Urine pH 5.0 (5.0-8.0) Ur Specific [place] 1.015 (1.003-1.030) Urine Protein 1+ H (NEGATIVE) mg/dL Urine Glucose (UA) Normal (Normal) mg/dL Urine Ketones Negative (NEGATIVE) mg/dL Urine Blood Negative (NEGATIVE) Urine Nitrate Negative (NEGATIVE) Urine Bilirubin Negative (NEGATIVE) Urine Urobilinogen Normal (0.2-1.0) mg/dL Ur Leukocyte Esterase Neg (Negative) Jatin/uL Urine WBC (Auto) 5 (0-5) /hpf Urine RBC (Auto) 6 H (0-3) /hpf Ur Squamous Epith Cells < 1 (0-5) /hpf Amorphous Sediment Rare H (<OCC) /ul Urine Bacteria Rare (<OCC) Laboratory Results - last 24 hr 03/02/18 03/02/18 03/03/18 15:42 17:47 05:35 WBC RBC Hgb Hct MCV MCH MCHC RDW Plt Count MPV Neut % (Auto) Lymph % (Auto) [place] % (Auto) Eos % (Auto) Baso % (Auto) Neut # (Auto) Lymph # (Auto) [place] # (Auto) Eos # (Auto) Baso # (Auto) Puncture Site Rr Rr pCO2 50 H 39 pO2 274 H 103 H HCO3 28.3 H 30.1 H ABG pH 7.39 7.50 H ABG Total CO2 31.8 H 31.6 H ABG O2 Saturation 99.1 H 98.5 H ABG Base Excess 4.2 H 6.7 H ABG Hemoglobin 10.4 L ABG Carboxyhemoglobin 1.5 POC ABG HHb (Measured) 1.5 ABG Methemoglobin 1.3 Victoriano Test Unable Pos ABG Potassium 3.7 A-a O2 Difference 377.0 276.0 Respiratory Index 1.4 2.7 Hgb O2 Saturation 95.8 Sodium 139.0 Chloride 109.0 H Glucose 99 Lactate 0.7 Vent Mode Prvc Prvc Mechanical Rate 18 18 FiO2 100.0 60.0 Tidal Volume 550 550 PEEP 5 5 Potassium Carbon Dioxide Anion Gap BUN Creatinine Est GFR ( Amer) Est GFR (Non-Af Amer) Random Glucose Calcium Phosphorus Magnesium Total Bilirubin AST ALT Alkaline Phosphatase Total Protein Albumin Globulin Albumin/Globulin Ratio Arterial Blood Potassium 3.7 Urine Color Yellow Urine Clarity Hazy Urine pH 5.0 Ur Specific Emerson 1.015 Urine Protein 1+ H Urine Glucose (UA) Normal Urine Ketones Negative Urine Blood Negative Urine Nitrate Negative Urine Bilirubin Negative Urine Urobilinogen Normal Ur Leukocyte Esterase Neg Urine WBC (Auto) 5 Urine RBC (Auto) 6 H Ur Squamous Epith Cells < 1 Amorphous Sediment Rare H Urine Bacteria Rare 03/03/18 03/03/18 06:16 06:17 WBC 14.9 H RBC 3.71 L Hgb 10.2 L Hct 31.7 L MCV 85.5 MCH 27.5 MCHC 32.1 L RDW 16.7 H Plt Count 304 MPV 7.8 Neut % (Auto) 76.2 H Lymph % (Auto) 10.7 L [place] % (Auto) 11.2 H Eos % (Auto) 1.6 Baso % (Auto) 0.3 Neut # (Auto) 11.4 H Lymph # (Auto) 1.6 [place] # (Auto) 1.7 H Eos # (Auto) 0.2 Baso # (Auto) 0.0 Puncture Site pCO2 pO2 HCO3 ABG pH ABG Total CO2 ABG O2 Saturation ABG Base Excess ABG Hemoglobin ABG Carboxyhemoglobin POC ABG HHb (Measured) ABG Methemoglobin Victoriano Test ABG Potassium A-a O2 Difference Respiratory Index Hgb O2 Saturation Sodium 141 Chloride 103 Glucose Lactate Vent Mode Mechanical Rate FiO2 Tidal Volume PEEP Potassium 3.6 Carbon Dioxide 30 Anion Gap 11 BUN 19 Creatinine 1.2 Est GFR ( Amer) > 60 Est GFR (Non-Af Amer) > 60 Random Glucose 94 Calcium 9.3 Phosphorus 1.8 L Magnesium 1.7 Total Bilirubin 0.7 AST 24 ALT 33 Alkaline Phosphatase 68 Total Protein 6.4 Albumin 2.9 L D Globulin 3.4 Albumin/Globulin Ratio 0.9 L Arterial Blood Potassium Urine Color Urine Clarity Urine pH Ur Specific [place] Urine Protein Urine Glucose (UA) Urine Ketones Urine Blood Urine Nitrate Urine Bilirubin Urine Urobilinogen Ur Leukocyte Esterase Urine WBC (Auto) Urine RBC (Auto) Ur Squamous Epith Cells Amorphous Sediment Urine Bacteria Attending/Attestation - Attestation I have personally seen and examined this patient.: Yes I have fully participated in the care of the patient.: Yes I have reviewed all pertinent clinical information: Yes Notes (Text): 03/03/18 13:45 I have seen and examined the patient. Medical records, lab studies, and imaging were reviewed by me and a management plan was formulated on multidisciplinary rounds with resident Dr. Santos. I agree with their documented assessment and plan. 57yo M. PMHx HTN. p/w with acute hypercarbic respiratory failure from presumed decompensated ANDREIA. Neuro: stopping propofol, now on precedex gtt Pulm: acute respiratory failure on PRVC, starting PS trials. CV: hemodynamically stable. HTN on Vasotec po. Hem: no acute issues Renal: metabolic alkalosis from chronic diuretic use. Need to give Lasix IV today for pulmonary edema, will also give diamox to treat alkalosis. Endo: no acute issues GI: NPO, will start tube feeds, Jevity. ID: LLE wound, + MSSA and Pseudomonas, continue Zosyn. DVT proph - lovenox GI proph - protonix briseno for strict I/O's during acute illness Code status - full code Critical Care Time spent 35 minutes Multi-disciplinary rounds were performed with house staff, nursing, speech therapy, respiratory therapy, pharmacy and nutrition with integrated input from the primary team/attending and other consulting services. The documented time is cumulative and includes review of patient data/exams/labs/chart review and examination of the patient on rounds and throughout the day; time is exclusive of any procedures or teaching time.
--- NOTE | 2018-03-03 08:14 | RAD ---
HISTORY: intubated COMPARISON: 03/02/2018 FINDINGS: LUNGS: No infiltrate. PLEURA: No significant pleural effusion identified, no pneumothorax apparent. CARDIOVASCULAR: Normal heart size. ET tube, NG tube and right IJ central venous catheter are all grossly unchanged. OSSEOUS STRUCTURES: No significant abnormalities. VISUALIZED UPPER ABDOMEN: Normal. OTHER FINDINGS: None. IMPRESSION: No active disease.
--- NOTE | 2018-03-03 08:36 | RAD ---
HISTORY: TLC placement COMPARISON: 03/02/2018 at 3:21 p.m. FINDINGS: LUNGS: Right perihilar opacity. Nonspecific. Followup advised. Rule out developing pneumonia. Rule out congestive heart failure. PLEURA: No significant pleural effusion identified, no pneumothorax apparent. CARDIOVASCULAR: Normal heart size. Mild congestive change. ET tube grossly unchanged. New NG tube extends to left abdomen. New right IJ multi lumen central venous catheter terminates in the region of the superior vena cava. OSSEOUS STRUCTURES: No significant abnormalities. VISUALIZED UPPER ABDOMEN: Normal. OTHER FINDINGS: None. IMPRESSION: Right perihilar opacity. New NG tube and right IJ central venous catheter.
[2018-03-03] MEDS: Enoxaparin 40 mg Syringe SC SCH (09:09)
[2018-03-03] MEDS ORDERED: Dexmedetomidine Hydrochloride 200 MCG in Sodium Chloride 0.9% 48 ML IV PRN (10:03)
[2018-03-03] MEDS: Piperacill/Tazo 3.375gm in Dex 3.375 GM/50 ML BAG IVPB SCH ×3 (11:00→23:09)
[2018-03-03] MEDS: Dexmedetomidine Hydrochloride 400 MCG in Sodium Chloride 0.9% 96 ML IV PRN ×2 (12:29→17:16)
[2018-03-03] MEDS ORDERED: Pneumococcal 23-Valent Vaccine IM ONE (14:00)
[2018-03-03] MEDS: Acetaminophen 650mg/20.3ml solution UD PO PRN (16:32)
--- NOTE | 2018-03-03 19:51 | CP.PCM.PN ---
Subjective - Date & Time of Evaluation Date of Evaluation: 03/03/18 Time of Evaluation: 08:00 - Subjective Subjective: cltures noted IV rx in progress switched to Zosyn Objective - Vital Signs/Intake and Output Vital Signs (last 24 hours): Temp Pulse Resp BP Pulse Ox 101.2 F H 83 17 127/76 98 03/03/18 16:00 03/03/18 19:00 03/03/18 19:00 03/03/18 19:00 03/03/18 19:00 Intake and Output: 03/03/18 03/04/18 18:59 06:59 Intake Total 709.6 27.1 Output Total 1735 70 Balance -1025.4 -42.9 - Medications Medications: Current Medications Acetaminophen (Tylenol 650mg/20.3ml Solution Ud) 650 mg PO Q6 PRN PRN Reason: fever Last Admin: 03/03/18 16:32 Dose: 650 mg Acetazolamide (Diamox 500 Mg Inj) 500 mg IV Q12 [facility] Stop: 03/03/18 22:01 Last Admin: 03/03/18 10:56 Dose: 500 mg Albuterol/Ipratropium (Duoneb 3 Mg/0.5 Mg (3 Ml) Ud) 3 ml INH RQ4 [facility] Last Admin: 03/03/18 16:19 Dose: 3 ml Enalapril Maleate (Vasotec) 10 mg PO DAILY [facility] Last Admin: 03/03/18 09:09 Dose: 10 mg Enoxaparin Sodium (Lovenox) 40 mg SC DAILY [facility] Last Admin: 03/03/18 09:09 Dose: 40 mg Propofol (Diprivan) 1,000 mg in 100 mls @ 5.156 mls/hr IV .[id number] PRN; Protocol; 5 MCG/KG/MIN PRN Reason: TITRATE PER MD ORDER Last Admin: 03/03/18 08:25 Dose: 38.8 mcg/kg/min, 40.01 mls/hr Piperacillin Sod/Tazobactam Sod (Zosyn 3.375 Gm Iv Premix) 3.375 gm in 50 mls @ 100 mls/hr IVPB Q6H LACHO PRN Reason: Protocol Last Admin: 03/03/18 16:31 Dose: 100 mls/hr Dexmedetomidine HCl 400 mcg/ (Sodium Chloride) 100 mls @ 8.59 mls/hr IV TITR PRN; Protocol; 0.2 MCG/KG/HR PRN Reason: Agitation Last Admin: 03/03/18 17:16 Dose: 0.4 mcg/kg/hr, 17.19 mls/hr Oxycodone/Acetaminophen (Percocet 5/325 Mg Tab) 1 tab PO Q4H PRN PRN Reason: pain Stop: 03/03/18 23:03 Last Admin: 03/01/18 19:35 Dose: 1 tab Pantoprazole Sodium (Protonix Inj) 40 mg IVP DAILY [facility]O Last Admin: 03/03/18 09:08 Dose: 40 mg - Labs Labs: 03/03/18 06:16 03/03/18 06:17 - Constitutional Appears: Chronically Ill - Head Exam Head Exam: NORMOCEPHALIC - Eye Exam Eye Exam: PERRL - ENT Exam ENT Exam: Mucous Membranes Dry - Neck Exam Neck Exam: absent: Lymphadenopathy - Respiratory Exam Respiratory Exam: Decreased Breath Sounds - Cardiovascular Exam Cardiovascular Exam: REGULAR RHYTHM - GI/Abdominal Exam GI & Abdominal Exam: Distended Assessment and Plan (1) Dyspnea Status: Acute (2) Leg ulcer, left Status: Acute (3) Morbid obesity Status: Acute (4) Cellulitis Status: Acute (5) Fever Status: Acute
[2018-03-04] MEDS: Albuterol-Ipratrop 3 mg / 0.5 (3 ml) UD INH SCH ×7 (00:07→23:57)
[2018-03-04] MEDS: Acetaminophen 650mg/20.3ml solution UD PO PRN (00:48)
[2018-03-04] MEDS: Piperacill/Tazo 3.375gm in Dex 3.375 GM/50 ML BAG IVPB SCH ×4 (04:32→21:45)
[2018-03-04 05:35] LABS: ABG ALLEN TEST POS; ARTERIAL BLOOD GAS HCO3 28.2 mmol/L (21-28); ARTERIAL BLOOD GAS O2 SAT 98.5 % (95-98); ARTERIAL BLOOD GAS PCO2 35 mm/Hg (35-45); ARTERIAL BLOOD GAS PO2 91 mm/Hg (80-100); ARTERIAL BLOOD GAS TCO2 28.4 mmol/L (22-28)
[2018-03-04 06:34] LABS: BASO # 0.1 K/uL (0.0-0.2); BASO % 0.4 % (0.0-2.0); EOS # 0.3 K/uL (0.0-0.7); EOS % 1.3 % (0.0-4.0); HEMOGLOBIN 10.3 g/dL (12.0-18.0); LYMPH # 1.6 K/uL (1.0-4.3); LYMPH % 7.9 % (20.0-40.0); MEAN CELL VOLUME 85.3 fL (80.0-94.0); MEAN CORPUSCULAR HGB CONC 31.7 g/dL (33.0-37.0); MEAN PLATELET VOLUME 8.2 fL (7.2-11.7); MONO # 2.2 K/uL (0.0-0.8); NEUT # 16.3 K/uL (1.8-7.0); NEUT % 79.4 % (50.0-75.0); PLATELET COUNT 292 K/uL (130-400); RBC 3.81 Mil/uL (4.40-5.90); RED CELL DISTRIBUTION WIDTH 16.6 % (11.5-14.5); WHITE BLOOD COUNT 20.5 K/uL (4.8-10.8)
[2018-03-04] MEDS: Dexmedetomidine Hydrochloride 400 MCG in Sodium Chloride 0.9% 96 ML IV PRN ×2 (06:49)
[2018-03-04 06:56] LABS: ALB/GLOB RATIO 0.8 (1.0-2.1); ALBUMIN 2.9 g/dL (3.5-5.0); CALCIUM 9.2 mg/dl (8.6-10.4)
[2018-03-04] MEDS ORDERED: Potassium Chloride 20 mEq/15 ml LIQ UD PO ONE (08:00)
[2018-03-04 08:25] LABS: ANISOCYTOSIS SLIGHT; EOSINOPHIL 2 % (0-4); LYMPHOCYTE 7 % (20-40); MONOCYTE 10 % (0-10); NEUTROPHIL 81 % (50-75); PLATELET ESTIMATE NORMAL (NORMAL); POIKILOCYTOSIS SLIGHT; TOTAL CELLS COUNTED 100
[2018-03-04 08:26] LABS: HYPOCHROMIC SLIGHT; TARGET CELLS SLIGHT
[2018-03-04 08:27] LABS: BURR CELLS SLIGHT; LARGE PLATELETS PRESENT
--- NOTE | 2018-03-04 08:40 | CP.CCUPN ---
CCU Subjective - Physician Review Subjective (Free Text): 03/03/18 08:07 Patient seen and examined. Patient intubated and sedated on Propofol. No acute events noted. 03/04/18 08:40 Patient seen and examined. Intubated and sedated on Precedex. Will decrease sedation as tolerated and continue CPAP trials. CCU Objective - Vital Signs / Intake & Output Vital Signs (Last 4 hours): Vital Signs Pulse Resp BP Pulse Ox 03/04/18 07:00 83 18 100/52 L 100 03/04/18 06:00 88 14 113/68 100 03/04/18 05:00 81 18 119/60 100 Intake and Output (Last 8hrs): Intake & Output 03/03/18 03/04/18 03/04/18 22:59 06:59 14:59 Intake Total 335.0 531.8 119.6 Output Total 720 630 75 Balance -385.0 -98.2 44.6 Weight 395 lb 4 oz Intake: IV 100 200 Intake, IV Amount 195.0 186.8 29.6 Right Distal Port 50 50 Internal Jugular Right Proximal Port 145.0 136.8 29.6 Internal Jugular Tube Feeding 40 145 90 Output: Urine 720 630 75 Urethral (Cai) 720 630 75 Other: # Bowel Movements 0 0 - Physical Exam Head: Positive for: Atraumatic, Normocephalic Pupils: Positive for: Sluggish Conjunctiva: Positive for: Normal Mouth: Positive for: Moist Mucous Membranes Neck: Positive for: Other (right IJ TLC) Respiratory/Chest: Positive for: Decreased Breath Sounds, Other (Coarse breath sounds). Negative for: Wheezes, Rales, Rhonchi Cardiovascular: Positive for: Regular Rate and Rhythm, Normal S1, S2 Abdomen: Positive for: Normal Bowel Sounds. Negative for: Tenderness Upper Extremity: Negative for: Edema Lower Extremity: Positive for: Other (left lateral leg wound) Skin: Positive for: Warm, Dry - Medications Active Medications: Active Medications Generic Name Dose Route Start Last Admin Trade Name Freq PRN Reason Stop Dose Admin Acetaminophen 650 mg 03/03/18 16:19 03/04/18 00:48 Tylenol 650mg/20.3ml Solution Ud PO 650 mg Q6 PRN Administration fever Albuterol/Ipratropium 3 ml 03/01/18 00:00 03/04/18 08:07 Duoneb 3 Mg/0.5 Mg (3 Ml) Ud INH 3 ml RQ4 LACHO Administration Enalapril Maleate 10 mg 03/03/18 10:00 03/03/18 09:09 Vasotec PO 10 mg DAILY [facility] Administration Enoxaparin Sodium 40 mg 03/01/18 10:00 03/03/18 09:09 Lovenox SC 40 mg DAILY [facility] Administration Propofol 1,000 mg in 100 mls @ 5.156 mls/hr 03/02/18 15:09 03/03/18 08:25 Diprivan IV 38.8 mcg/kg/min .[id number] PRN 40.01 mls/hr TITRATE PER MD ORDER Administration Protocol 5 MCG/KG/MIN Piperacillin Sod/Tazobactam Sod 3.375 gm in 50 mls @ 100 mls/hr 03/03/18 11: 00 03/04/18 04:32 Zosyn 3.375 Gm Iv Premix IVPB 100 mls/hr Q6H [facility]ACHO Administration Protocol Dexmedetomidine HCl 400 mcg/ 100 mls @ 8.59 mls/hr 03/03/18 12:00 03/04/18 06 :49 Sodium Chloride IV 0.4 mcg/kg/hr TITR PRN 17.19 mls/hr Agitation Administration Protocol 0.2 MCG/KG/HR Pantoprazole Sodium 40 mg 03/03/18 10:00 03/03/18 09:08 Protonix Inj IVP 40 mg DAILY L[facility]O Administration - Patient Studies Lab Studies: Microbiology Studies 02/28/18 20:30 Blood Culture - Preliminary Blood NO GROWTH AFTER 3 DAYS 02/28/18 19:25 Blood Culture - Preliminary Blood NO GROWTH AFTER 3 DAYS 03/02/18 Unknown MRSA Culture (Admit) - Final Naris MRSA NOT DETECTED 03/01/18 13:00 Gram Stain - Final Sputum Sputum Culture - Final NORMAL ORAL MICHELLE 03/01/18 00:41 Gram Stain - Final Leg - Left Wound Culture - Final Pseudomonas Aeruginosa Staphylococcus Aureus Lab Studies 03/04/18 03/04/18 03/04/18 Range/Units 06:28 06:27 05:31 WBC 20.5 H (4.8-10.8) K/uL RBC 3.81 L (4.40-5.90) Mil/uL Hgb 10.3 L (12.0-18.0) g/dL Hct 32.5 L (35.0-51.0) % MCV 85.3 (80.0-94.0) fL MCH 27.0 (27.0-31.0) pg MCHC 31.7 L (33.0-37.0) g/dL RDW 16.6 H (11.5-14.5) % Plt Count 292 (130-400) K/uL MPV 8.2 (7.2-11.7) fL Neut % (Auto) 79.4 H (50.0-75.0) % Lymph % (Auto) 7.9 L (20.0-40.0) % [facility] % (Auto) 11.0 H (0.0-10.0) % Eos % (Auto) 1.3 (0.0-4.0) % Baso % (Auto) 0.4 (0.0-2.0) % Neut # (Auto) 16.3 H (1.8-7.0) K/uL Lymph # (Auto) 1.6 (1.0-4.3) K/uL [facility] # (Auto) 2.2 H (0.0-0.8) K/uL Eos # (Auto) 0.3 (0.0-0.7) K/uL Baso # (Auto) 0.1 (0.0-0.2) K/uL Neutrophils % (Manual) 81 H (50-75) % Lymphocytes % (Manual) 7 L (20-40) % Monocytes % (Manual) 10 (0-10) % Eosinophils % (Manual) 2 (0-4) % Platelet Estimate Normal (NORMAL) Large Platelets Present Hypochromasia (manual) Slight Poikilocytosis (manual Slight Anisocytosis (manual) Slight Target Cells Slight Leivasy Cells Slight Puncture Site Rr pCO2 35 (35-45) mm/Hg pO2 91 (80-100) mm/Hg HCO3 28.2 H (21-28) mmol/L ABG pH 7.50 H (7.35-7.45) ABG Total CO2 28.4 H (22-28) mmol/L ABG O2 Saturation 98.5 H (95-98) % ABG Base Excess 4.2 H (-2.0-3.0) mmol/L Victoriano Test Pos ABG Potassium 3.0 L (3.6-5.2) mmol/L A-a O2 Difference 293.0 mm/Hg Respiratory Index 3.2 Sodium 143 139.0 (132-148) mmol/l Chloride 103 107.0 (98-107) mmol/L Glucose 129 H (75-110) mg/dl Lactate 0.8 (0.7-2.1) mmol/L Vent Mode Prvc Mechanical Rate 18 FiO2 60.0 % Tidal Volume 550 PEEP 5 Potassium 3.2 L (3.6-5.2) mmol/L Carbon Dioxide 28 (22-30) mmol/L Anion Gap 15 (10-20) BUN 18 (9-20) mg/dL Creatinine 1.5 (0.8-1.5) mg/dL Est GFR ( Amer) 58 Est GFR (Non-Af Amer) 48 Random Glucose 103 (75-110) mg/dL Calcium 9.2 (8.6-10.4) mg/dl Phosphorus 2.6 (2.5-4.5) mg/dL Magnesium 1.8 (1.6-2.3) mg/dL Total Bilirubin 1.5 H (0.2-1.3) mg/dL AST 29 (17-59) U/L ALT 20 L D (21-72) U/L Alkaline Phosphatase 73 (38-126) U/L Total Protein 6.6 (6.3-8.3) g/dL Albumin 2.9 L (3.5-5.0) g/dL Globulin 3.7 (2.2-3.9) gm/dL Albumin/Globulin Ratio 0.8 L (1.0-2.1) Arterial Blood Potassium 3.0 L (3.6-5.2) mmol/L Laboratory Results - last 24 hr 03/04/18 03/04/18 03/04/18 05:31 06:27 06:28 WBC 20.5 H RBC 3.81 L Hgb 10.3 L Hct 32.5 L MCV 85.3 MCH 27.0 MCHC 31.7 L RDW 16.6 H Plt Count 292 MPV 8.2 Neut % (Auto) 79.4 H Lymph % (Auto) 7.9 L [facility] % (Auto) 11.0 H Eos % (Auto) 1.3 Baso % (Auto) 0.4 Neut # (Auto) 16.3 H Lymph # (Auto) 1.6 [facility] # (Auto) 2.2 H Eos # (Auto) 0.3 Baso # (Auto) 0.1 Neutrophils % (Manual) 81 H Lymphocytes % (Manual) 7 L Monocytes % (Manual) 10 Eosinophils % (Manual) 2 Platelet Estimate Normal Large Platelets Present Hypochromasia (manual) Slight Poikilocytosis (manual Slight Anisocytosis (manual) Slight Target Cells Slight Leivasy Cells Slight Puncture Site Rr pCO2 35 pO2 91 HCO3 28.2 H ABG pH 7.50 H ABG Total CO2 28.4 H ABG O2 Saturation 98.5 H ABG Base Excess 4.2 H Victoriano Test Pos ABG Potassium 3.0 L A-a O2 Difference 293.0 Respiratory Index 3.2 Sodium 139.0 143 Chloride 107.0 103 Glucose 129 H Lactate 0.8 Vent Mode Prvc Mechanical Rate 18 FiO2 60.0 Tidal Volume 550 PEEP 5 Potassium 3.2 L Carbon Dioxide 28 Anion Gap 15 BUN 18 Creatinine 1.5 Est GFR ( Amer) 58 Est GFR (Non-Af Amer) 48 Random Glucose 103 Calcium 9.2 Phosphorus 2.6 Magnesium 1.8 Total Bilirubin 1.5 H AST 29 ALT 20 L D Alkaline Phosphatase 73 Total Protein 6.6 Albumin 2.9 L Globulin 3.7 Albumin/Globulin Ratio 0.8 L Arterial Blood Potassium 3.0 L Assessment/Plan - Assessment and Plan (Free Text) Assessment: This is a 57 year old morbidly obese male with PMHx HTN who presented to the hospital for shortness of breath. Patient was transferred to the ICU for impending respiratory failure. Patient intubated by anesthesia using Glidoscope. Switched sedation to Precedex yesterday. CPAP trials to wean the patient off the ventilator. Tentative plan is for extubation tomorrow. Neuro Intubated and sedated with Precedex Cardio Assessment: Hx of HTN Home Vasotec 10 mg PO daily Pulm Assessment: Hypercapnic Respiratory Failure Duoneb Q4H [facility] Vented CPAP trials Tentative plan for extubation tomorrow GI Tube feeds Protonix 40 mg IV daily Renal/ Negative fluid balance Infectious Disease Assessment: Left leg wound (Pseudomonas and MSSA) ID on consult Zosyn 3.375 gm Q6H Prophylaxis Lovenox 40 mg SC daily Protonix 40 mg IV daily Discussed with Dr. Almaraz
--- NOTE | 2018-03-04 09:28 | RAD ---
HISTORY: intubated COMPARISON: 03/03/2018 FINDINGS: LUNGS: Examination limited due to patient body habitus. No infiltrate thickening or fluid in minor fissure, unchanged. PLEURA: Possible small left pleural effusion. No right pleural effusion. No pneumothorax. CARDIOVASCULAR: Cardiomegaly. ET tube and NG tube unchanged. Right IJ central venous catheter unchanged. OSSEOUS STRUCTURES: No significant abnormalities. VISUALIZED UPPER ABDOMEN: Normal. OTHER FINDINGS: None. IMPRESSION: Possible small left pleural effusion. Lines and tubes unchanged. No infiltrate. Limited examination.
--- NOTE | 2018-03-04 09:38 | VASCLAB ---
PROCEDURE: Lower Extremity Venous Duplex Exam. HISTORY: Leg swelling PRIORS: None. TECHNIQUE: Bilateral common femoral, femoral, popliteal and posterior tibial, peroneal and great saphenous veins were evaluated. Flow was assessed with color Doppler, compressibility, assessment of phasic flow and augmentation response. Report prepared by ALEJANDRO Leal, RVT FINDINGS: RIGHT: 1. Common Femoral Vein: 1.1. Compressibility - Fully compressible: Thrombus - None : Flow - Phasic: Augmentation -Normal: Reflux - None. 2. Femoral Vein: 2.1. Compressibility - Fully compressible: Thrombus - None : Flow - Phasic: Augmentation -Normal: Reflux - None. 3. Popliteal Vein: 3.1. Compressibility - Fully compressible: Thrombus - None : Flow - Phasic: Augmentation -Normal: Reflux - None. 4. Posterior Tibial Vein: 4.1. Compressibility - : Thrombus - : Flow - : Augmentation -: Reflux - . 5. Peroneal Vein: 5.1. Compressibility - : Thrombus - : Flow - : Augmentation -: Reflux - . 6. Great Saphenous Vein: 6.1. Compressibility - Fully compressible: Thrombus - None: Flow - Phasic: Augmentation - Normal: Reflux - None. LEFT: 1. Common Femoral Vein: 1.1. Compressibility - Fully compressible: Thrombus - None: Flow - Phasic: Augmentation -Normal: Reflux - None. 2. Femoral Vein: 2.1. Compressibility - Fully compressible: Thrombus - None: Flow - Phasic: Augmentation -Normal: Reflux - None. 3. Popliteal Vein: 3.1. Compressibility - Fully compressible: Thrombus - None : Flow - Phasic: Augmentation -Normal: Reflux - None. 4. Posterior Tibial Vein: 4.1. Compressibility - : Thrombus - : Flow - : Augmentation -: Reflux - . 5. Peroneal Vein: 5.1. Compressibility - : Thrombus - : Flow - : Augmentation -: Reflux - . 6. Great Saphenous Vein: 6.1. Compressibility - Fully compressible: Thrombus - None: Flow - Phasic: Augmentation - Normal: Reflux - None. OTHER FINDINGS: Technically difficult and limited study due to patient body habitus. Due to swelling in the calves, bilateral peroneal and posterior tibial vein were not visualized. IMPRESSION: Right: No evidence of deep or superficial vein thrombosis of the right lower extremity. Normal valve function noted of the right side. Left: No evidence of deep or superficial vein thrombosis of the left lower extremity. Normal valve function noted of the left side.
[2018-03-04] MEDS: Enoxaparin 40 mg Syringe SC SCH (10:01)
--- NOTE | 2018-03-04 18:13 | CP.PCM.PN ---
Subjective - Date & Time of Evaluation Date of Evaluation: 03/04/18 Time of Evaluation: 09:00 - Subjective Subjective: intubated/ sedated NAD iv rx in progress Objective - Vital Signs/Intake and Output Vital Signs (last 24 hours): Temp Pulse Resp BP Pulse Ox 100 F H 110 H 29 H 106/52 L 100 03/04/18 16:00 03/04/18 17:00 03/04/18 17:00 03/04/18 17:00 03/04/18 17:00 Intake and Output: 03/04/18 03/04/18 06:59 18:59 Intake Total 640.2 654.6 Output Total 975 600 Balance -334.8 54.6 - Medications Medications: Current Medications Acetaminophen (Tylenol 650mg/20.3ml Solution Ud) 650 mg PO Q6 PRN PRN Reason: fever Last Admin: 03/04/18 00:48 Dose: 650 mg Albuterol/Ipratropium (Duoneb 3 Mg/0.5 Mg (3 Ml) Ud) 3 ml INH RQ4 [facility] Last Admin: 03/04/18 15:32 Dose: 3 ml Enalapril Maleate (Vasotec) 10 mg PO DAILY [facility] Last Admin: 03/04/18 10:01 Dose: Not Given Enoxaparin Sodium (Lovenox) 40 mg SC DAILY [facility] Last Admin: 03/04/18 10:01 Dose: 40 mg Piperacillin Sod/Tazobactam Sod (Zosyn 3.375 Gm Iv Premix) 3.375 gm in 50 mls @ 100 mls/hr IVPB Q6H [facility] PRN Reason: Protocol Last Admin: 03/04/18 16:55 Dose: 100 mls/hr Dexmedetomidine HCl 400 mcg/ (Sodium Chloride) 100 mls @ 8.59 mls/hr IV TITR PRN; Protocol; 0.2 MCG/KG/HR PRN Reason: Agitation Last Titration: 03/04/18 09:30 Dose: 0 mcg/kg/hr, 0 mls/hr Pantoprazole Sodium (Protonix Inj) 40 mg IVP DAILY [facility] Last Admin: 03/04/18 10:00 Dose: 40 mg - Labs Labs: 03/04/18 06:27 03/04/18 06:28 - Constitutional Appears: Non-toxic, Chronically Ill - Head Exam Head Exam: NORMOCEPHALIC - Eye Exam Eye Exam: PERRL - ENT Exam Additional comments: intubated orally - Neck Exam Neck Exam: absent: Lymphadenopathy - Respiratory Exam Respiratory Exam: Decreased Breath Sounds - Cardiovascular Exam Cardiovascular Exam: REGULAR RHYTHM - GI/Abdominal Exam GI & Abdominal Exam: Distended, Soft - Rectal Exam Rectal Exam: Deferred - Exam Exam: NORMAL INSPECTION - Extremities Exam Extremities Exam: Pedal Edema, Tenderness - Back Exam Back Exam: absent: CVA tenderness (L), CVA tenderness (R) - Neurological Exam Neurological Exam: Alert, Awake, Oriented x3 - Psychiatric Exam Psychiatric exam: Depressed - Skin Skin Exam: Dry Assessment and Plan (1) Dyspnea Status: Acute (2) Leg ulcer, left Status: Acute (3) Morbid obesity Status: Acute (4) Cellulitis Status: Acute (5) Fever Status: Acute - Assessment and Plan (Free Text) Assessment: cont iv rx wean as tolerated
[2018-03-05] MEDS: Albuterol-Ipratrop 3 mg / 0.5 (3 ml) UD INH SCH ×5 (03:08→19:57)
[2018-03-05] MEDS: Piperacill/Tazo 3.375gm in Dex 3.375 GM/50 ML BAG IVPB SCH ×4 (05:10→22:00)
[2018-03-05] MEDS: Acetaminophen 650mg/20.3ml solution UD PO PRN (05:20)
[2018-03-05 05:57] LABS: ABG ALLEN TEST POS; ARTERIAL BLOOD GAS HCO3 26.6 mmol/L (21-28); ARTERIAL BLOOD GAS HEMOGLOBIN 10.3 g/dL (11.7-17.4); ARTERIAL BLOOD GAS O2 SAT 99.2 % (95-98); ARTERIAL BLOOD GAS PCO2 50 mm/Hg (35-45); ARTERIAL BLOOD GAS PH 7.36 (7.35-7.45); ARTERIAL BLOOD GAS PO2 117 mm/Hg (80-100); ARTERIAL BLOOD GAS TCO2 29.7 mmol/L (22-28)
[2018-03-05 06:46] LABS: BASO # 0.1 K/uL (0.0-0.2); BASO % 0.3 % (0.0-2.0); EOS # 0.1 K/uL (0.0-0.7); EOS % 0.4 % (0.0-4.0); HEMOGLOBIN 9.8 g/dL (12.0-18.0); LYMPH # 1.7 K/uL (1.0-4.3); LYMPH % 6.7 % (20.0-40.0); MEAN CELL VOLUME 86.4 fL (80.0-94.0); MEAN CORPUSCULAR HEMOGLOBIN 27.5 pg (27.0-31.0); MEAN CORPUSCULAR HGB CONC 31.8 g/dL (33.0-37.0); MEAN PLATELET VOLUME 8.2 fL (7.2-11.7); MONO # 2.7 K/uL (0.0-0.8); MONO % 10.7 % (0.0-10.0); NEUT # 20.6 K/uL (1.8-7.0); NEUT % 81.9 % (50.0-75.0); PLATELET COUNT 285 K/uL (130-400); RBC 3.58 Mil/uL (4.40-5.90); WHITE BLOOD COUNT 25.1 K/uL (4.8-10.8)
[2018-03-05 07:17] LABS: ALB/GLOB RATIO 0.8 (1.0-2.1); ALBUMIN 2.9 g/dL (3.5-5.0); CALCIUM 9.3 mg/dl (8.6-10.4)
[2018-03-05 09:01] LABS: ANISOCYTOSIS SLIGHT; BANDS 1 % (0-2); LYMPHOCYTE 5 % (20-40); MONOCYTE 10 % (0-10); NEUTROPHIL 84 % (50-75); PLATELET ESTIMATE NORMAL (NORMAL); TOTAL CELLS COUNTED 100
[2018-03-05 09:02] LABS: HYPOCHROMIC SLIGHT; POLYCHROMIC SLIGHT
[2018-03-05] MEDS: Enoxaparin 40 mg Syringe SC SCH (10:05)
--- NOTE | 2018-03-05 12:16 | RAD ---
PROCEDURE: CHEST RADIOGRAPH, 1 VIEW HISTORY: Intubated COMPARISON: None available. FINDINGS: In situ ETT, tip of which lies approximately 4.5 cm above juancho. There is also in situ NGT, the tip of which has not been included on this film though distal aspect does lie below EG junction. LUNGS: Low lung volumes with crowded bronchovascular markings bibasilar atelectasis and possibly bibasilar infiltrates. The slightly improved central pulmonary vascular congestion. PLEURA: Possible small bilateral effusions. No apparent pneumothorax CARDIOVASCULAR: Normal. OSSEOUS STRUCTURES: No significant abnormalities. VISUALIZED UPPER ABDOMEN: Normal. OTHER FINDINGS: None. IMPRESSION: ETT and NGT as above. Slightly improved pulmonary vascular congestion. Mild bibasilar atelectasis and/or infiltrates once suspected small bilateral effusions
--- NOTE | 2018-03-05 14:25 | CP.CCUPN ---
CCU Subjective - Physician Review Events Since Last Encounter (Free Text): 03/05/18 14:10 patient is alert and following commands. CCU Objective - Vital Signs / Intake & Output Vital Signs (Last 4 hours): Vital Signs Temp Pulse Resp BP Pulse Ox 03/05/18 13:20 102 H 03/05/18 13:00 105 H 31 H 137/75 99 03/05/18 12:00 99.5 F 104 H 30 H 135/75 100 03/05/18 11:00 104 H 22 130/68 100 03/05/18 10:25 105 H Intake and Output (Last 8hrs): Intake & Output 03/04/18 03/05/18 03/05/18 22:59 06:59 14:59 Intake Total 460 410 235 Output Total 445 630 360 Balance 15 -220 -125 Weight 367 lb 14.4 oz Intake: Intake, IV Amount 100 50 100 Right Distal Port 100 50 100 Internal Jugular Tube Feeding 360 360 135 Output: Urine 445 430 360 Urethral (Briseno) 445 430 360 Stool 200 Other: # Bowel Movements 0 0 0 - Physical Exam Head: Positive for: Atraumatic, Normocephalic Pupils: Positive for: Sluggish Conjunctiva: Positive for: Normal Mouth: Positive for: Moist Mucous Membranes Neck: Positive for: Other (right IJ TLC) Respiratory/Chest: Positive for: Decreased Breath Sounds, Other (Coarse breath sounds). Negative for: Wheezes, Rales, Rhonchi Cardiovascular: Positive for: Regular Rate and Rhythm, Normal S1, S2 Abdomen: Positive for: Normal Bowel Sounds. Negative for: Tenderness Upper Extremity: Negative for: Edema Lower Extremity: Positive for: Other (left lateral leg wound) Skin: Positive for: Warm, Dry - Medications Active Medications: Active Medications Generic Name Dose Route Start Last Admin Trade Name Freq PRN Reason Stop Dose Admin Acetaminophen 650 mg 03/03/18 16:19 03/05/18 05:20 Tylenol 650mg/20.3ml Solution Ud PO 650 mg Q6 PRN Administration fever Albuterol/Ipratropium 3 ml 03/01/18 00:00 03/05/18 13:19 Duoneb 3 Mg/0.5 Mg (3 Ml) Ud INH 3 ml RQ4 [facility] Administration Enalapril Maleate 10 mg 03/03/18 10:00 05/05/18 10:04 Vasotec PO 10 mg DAILY [facility] Administration Enoxaparin Sodium 40 mg 03/01/18 10:00 03/05/18 10:05 Lovenox SC 40 mg DAILY [facility] Administration Piperacillin Sod/Tazobactam Sod 3.375 gm in 50 mls @ 100 mls/hr 03/03/18 11: 00 03/05/18 10:04 Zosyn 3.375 Gm Iv Premix IVPB 100 mls/hr Q6H [facility] Administration Protocol Pantoprazole Sodium 40 mg 03/03/18 10:00 03/05/18 10:04 Protonix Inj IVP 40 mg DAILY [facility] Administration - Patient Studies Lab Studies: Microbiology Studies 02/28/18 20:30 Blood Culture - Preliminary Blood NO GROWTH AFTER 4 DAYS 02/28/18 19:25 Blood Culture - Preliminary Blood NO GROWTH AFTER 4 DAYS 03/02/18 Unknown Urine Culture - Final Urine No Growth (<1,000 CFU/ML) Lab Studies 03/05/18 03/05/18 03/05/18 Range/Units 06:39 06:38 05:33 WBC 25.1 H (4.8-10.8) K/uL RBC 3.58 L (4.40-5.90) Mil/uL Hgb 9.8 L (12.0-18.0) g/dL Hct 30.9 L (35.0-51.0) % MCV 86.4 (80.0-94.0) fL MCH 27.5 (27.0-31.0) pg MCHC 31.8 L (33.0-37.0) g/dL RDW 17.0 H (11.5-14.5) % Plt Count 285 (130-400) K/uL MPV 8.2 (7.2-11.7) fL Neut % (Auto) 81.9 H (50.0-75.0) % Lymph % (Auto) 6.7 L (20.0-40.0) % Mineral % (Auto) 10.7 H (0.0-10.0) % Eos % (Auto) 0.4 (0.0-4.0) % Baso % (Auto) 0.3 (0.0-2.0) % Neut # (Auto) 20.6 H (1.8-7.0) K/uL Lymph # (Auto) 1.7 (1.0-4.3) K/uL Mineral # (Auto) 2.7 H (0.0-0.8) K/uL Eos # (Auto) 0.1 (0.0-0.7) K/uL Baso # (Auto) 0.1 (0.0-0.2) K/uL Neutrophils % (Manual) 84 H (50-75) % Band Neutrophils % 1 (0-2) % Lymphocytes % (Manual) 5 L (20-40) % Monocytes % (Manual) 10 (0-10) % Platelet Estimate Normal (NORMAL) Polychromasia Slight Hypochromasia (manual) Slight Anisocytosis (manual) Slight Puncture Site Rr pCO2 50 H (35-45) mm/Hg pO2 117 H (80-100) mm/Hg HCO3 26.6 (21-28) mmol/L ABG pH 7.36 (7.35-7.45) ABG Total CO2 29.7 H (22-28) mmol/L ABG O2 Saturation 99.2 H (95-98) % ABG Base Excess 2.1 (-2.0-3.0) mmol/L ABG Hemoglobin 10.3 L (11.7-17.4) g/dL ABG Carboxyhemoglobin 1.7 H (0.5-1.5) % POC ABG HHb (Measured) 0.8 (0.0-5.0) % ABG Methemoglobin 0.5 (0.0-3.0) % Victoriano Test Pos A-a O2 Difference 248.0 mm/Hg Respiratory Index 2.1 Hgb O2 Saturation 97.0 (95.0-98.0) % Vent Mode Cpap FiO2 60.0 % Pressure Support 15 CPAP 5 Sodium 145 (132-148) mmol/L Potassium 3.5 L (3.6-5.2) mmol/L Chloride 106 (98-107) mmol/L Carbon Dioxide 28 (22-30) mmol/L Anion Gap 14 (10-20) BUN 19 (9-20) mg/dL Creatinine 1.6 H (0.8-1.5) mg/dL Est GFR ( Amer) 54 Est GFR (Non-Af Amer) 45 Random Glucose 101 (75-110) mg/dL Calcium 9.3 (8.6-10.4) mg/dl Phosphorus 3.2 (2.5-4.5) mg/dL Magnesium 2.1 (1.6-2.3) mg/dL Total Bilirubin 1.2 (0.2-1.3) mg/dL AST 20 (17-59) U/L ALT 16 L (21-72) U/L Alkaline Phosphatase 78 (38-126) U/L Total Protein 6.7 (6.3-8.3) g/dL Albumin 2.9 L (3.5-5.0) g/dL Globulin 3.8 (2.2-3.9) gm/dL Albumin/Globulin Ratio 0.8 L (1.0-2.1) Laboratory Results - last 24 hr 03/05/18 03/05/18 03/05/18 05:33 06:38 06:39 WBC 25.1 H RBC 3.58 L Hgb 9.8 L Hct 30.9 L MCV 86.4 MCH 27.5 MCHC 31.8 L RDW 17.0 H Plt Count 285 MPV 8.2 Neut % (Auto) 81.9 H Lymph % (Auto) 6.7 L [place] % (Auto) 10.7 H Eos % (Auto) 0.4 Baso % (Auto) 0.3 Neut # (Auto) 20.6 H Lymph # (Auto) 1.7 Mineral # (Auto) 2.7 H Eos # (Auto) 0.1 Baso # (Auto) 0.1 Neutrophils % (Manual) 84 H Band Neutrophils % 1 Lymphocytes % (Manual) 5 L Monocytes % (Manual) 10 Platelet Estimate Normal Polychromasia Slight Hypochromasia (manual) Slight Anisocytosis (manual) Slight Puncture Site Rr pCO2 50 H pO2 117 H HCO3 26.6 ABG pH 7.36 ABG Total CO2 29.7 H ABG O2 Saturation 99.2 H ABG Base Excess 2.1 ABG Hemoglobin 10.3 L ABG Carboxyhemoglobin 1.7 H POC ABG HHb (Measured) 0.8 ABG Methemoglobin 0.5 Victoriano Test Pos A-a O2 Difference 248.0 Respiratory Index 2.1 Hgb O2 Saturation 97.0 Vent Mode Cpap FiO2 60.0 Pressure Support 15 CPAP 5 Sodium 145 Potassium 3.5 L Chloride 106 Carbon Dioxide 28 Anion Gap 14 BUN 19 Creatinine 1.6 H Est GFR ( Amer) 54 Est GFR (Non-Af Amer) 45 Random Glucose 101 Calcium 9.3 Phosphorus 3.2 Magnesium 2.1 Total Bilirubin 1.2 AST 20 ALT 16 L Alkaline Phosphatase 78 Total Protein 6.7 Albumin 2.9 L Globulin 3.8 Albumin/Globulin Ratio 0.8 L Review of Systems - Review of Systems All systems: reviewed and no additional remarkable complaints except (no complaints) Assessment/Plan (1) Acute respiratory failure with hypercapnia Assessment and plan: 57yo M. PMHx HTN. p/w with acute hypercarbic respiratory failure from presumed decompensated ANDREIA. Neuro: all sedation held for >24h. alert and following commands. Pulm: acute respiratory failure on PRVC, tolerated PS trials, will extubate to BIPAP. CV: hemodynamically stable. HTN on Vasotec po. Hem: no acute issues Renal: most likely a chronic retainer with compensatory metabolic alkalosis. Endo: no acute issues GI: NPO, will start tube feeds, Jevity. ID: LLE wound, + MSSA and Pseudomonas, continue Zosyn. Adding Meropenem as patient's WBC is rising. DVT proph - lovenox GI proph - protonix briseno for strict I/O's during acute illness Code status - full code Critical Care Time spent 35 minutes Multi-disciplinary rounds were performed with house staff, nursing, speech therapy, respiratory therapy, pharmacy and nutrition with integrated input from the primary team/attending and other consulting services. The documented time is cumulative and includes review of patient data/exams/labs/chart review and examination of the patient on rounds and throughout the day; time is exclusive of any procedures or teaching time. Current Visit: Yes Status: Acute
[2018-03-05] MEDS ORDERED: Meropenem 1 GM in Sodium Chloride 0.9% 100 ML IVPB ONE (15:28)
[2018-03-05 16:44] LABS: ABG ALLEN TEST UNABLE; ARTERIAL BLOOD GAS HCO3 25.7 mmol/L (21-28); ARTERIAL BLOOD GAS HEMOGLOBIN 10.1 g/dL (11.7-17.4); ARTERIAL BLOOD GAS O2 SAT 78.8 % (95-98); ARTERIAL BLOOD GAS PCO2 43 mm/Hg (35-45); ARTERIAL BLOOD GAS PO2 39 mm/Hg (80-100); ARTERIAL BLOOD GAS TCO2 27.9 mmol/L (22-28)
[2018-03-05] MEDS ORDERED: Enalaprilat 2.5 MG/2 ML IV ONE (17:00)
[2018-03-05] MEDS: Meropenem 500 MG in Sodium Chloride 0.9% 100 ML IVPB SCH (21:00)
[2018-03-06] MEDS: Albuterol-Ipratrop 3 mg / 0.5 (3 ml) UD INH SCH ×5 (00:23→23:35)
[2018-03-06] MEDS: Meropenem 500 MG in Sodium Chloride 0.9% 100 ML IVPB SCH ×3 (05:00→22:00)
[2018-03-06] MEDS: Piperacill/Tazo 3.375gm in Dex 3.375 GM/50 ML BAG IVPB SCH ×2 (05:28→12:34)
[2018-03-06 06:46] LABS: BASO # 0.1 K/uL (0.0-0.2); BASO % 0.3 % (0.0-2.0); EOS # 0.3 K/uL (0.0-0.7); EOS % 1.5 % (0.0-4.0); HEMOGLOBIN 9.7 g/dL (12.0-18.0); LYMPH # 1.6 K/uL (1.0-4.3); LYMPH % 7.5 % (20.0-40.0); MEAN CELL VOLUME 87.4 fL (80.0-94.0); MEAN CORPUSCULAR HEMOGLOBIN 27.7 pg (27.0-31.0); MEAN CORPUSCULAR HGB CONC 31.7 g/dL (33.0-37.0); MEAN PLATELET VOLUME 8.4 fL (7.2-11.7); MONO # 1.9 K/uL (0.0-0.8); MONO % 8.7 % (0.0-10.0); NEUT # 18.1 K/uL (1.8-7.0); PLATELET COUNT 294 K/uL (130-400); RBC 3.51 Mil/uL (4.40-5.90); RED CELL DISTRIBUTION WIDTH 17.2 % (11.5-14.5); WHITE BLOOD COUNT 22.1 K/uL (4.8-10.8)
[2018-03-06 06:59] LABS: ALB/GLOB RATIO 0.7 (1.0-2.1); ALBUMIN 2.9 g/dL (3.5-5.0); CALCIUM 9.6 mg/dl (8.6-10.4)
[2018-03-06 08:40] LABS: EOSINOPHIL 3 % (0-4); LYMPHOCYTE 7 % (20-40); MONOCYTE 8 % (0-10); NEUTROPHIL 82 % (50-75); TOTAL CELLS COUNTED 100
[2018-03-06 08:41] LABS: PLATELET ESTIMATE NORMAL (NORMAL)
[2018-03-06 08:42] LABS: ANISOCYTOSIS MODERATE; HYPOCHROMIC SLIGHT; LARGE PLATELETS PRESENT; POLYCHROMIC SLIGHT; TOXIC GRANULATION PRESENT
[2018-03-06] MEDS: Enoxaparin 40 mg Syringe SC SCH (09:22)
--- NOTE | 2018-03-06 12:20 | CP.CCUPN ---
CCU Subjective - Physician Review Events Since Last Encounter (Free Text): 03/06/18 12:16 patient seen and examined in the intensive care unit. Patient extubated yesterday Alert oriented placed on BiPAP for shortness of breath Tolerating diet Afebrile CCU Objective - Vital Signs / Intake & Output Vital Signs (Last 4 hours): Vital Signs Pulse BP 03/06/18 12:05 108 H 03/06/18 09:22 117/61 Intake and Output (Last 8hrs): Intake & Output 03/05/18 03/06/18 03/06/18 22:59 06:59 14:59 Intake Total 300 150 0 Output Total 555 275 40 Balance -255 -125 -40 Weight 359 lb Intake: Intake, IV Amount 300 150 0 Right Distal Port 300 150 0 Internal Jugular Tube Feeding 0 0 0 Output: Urine 555 275 40 Urethral (Cai) 555 275 40 Stool 0 0 Other: # Bowel Movements 0 0 - Physical Exam Head: Positive for: Atraumatic, Normocephalic Pupils: Positive for: Sluggish Conjunctiva: Positive for: Normal Mouth: Positive for: Moist Mucous Membranes Neck: Positive for: Other (right IJ TLC) Respiratory/Chest: Positive for: Decreased Breath Sounds, Other (Coarse breath sounds). Negative for: Wheezes, Rales, Rhonchi Cardiovascular: Positive for: Regular Rate and Rhythm, Normal S1, S2 Abdomen: Positive for: Normal Bowel Sounds. Negative for: Tenderness Upper Extremity: Negative for: Edema Lower Extremity: Positive for: Other (left lateral leg wound) Skin: Positive for: Warm, Dry Psychiatric: Positive for: Alert - Medications Active Medications: Active Medications Generic Name Dose Route Start Last Admin Trade Name Freq PRN Reason Stop Dose Admin Acetaminophen 650 mg 03/03/18 16:19 03/05/18 05:20 Tylenol 650mg/20.3ml Solution Ud PO 650 mg Q6 PRN Administration fever Albuterol/Ipratropium 3 ml 03/06/18 12:00 Duoneb 3 Mg/0.5 Mg (3 Ml) Ud INH RQ4 [facility] Enalapril Maleate 10 mg 03/03/18 10:00 03/06/18 09:22 Vasotec PO 10 mg DAILY [facility] Administration Enoxaparin Sodium 40 mg 03/01/18 10:00 03/06/18 09:22 Lovenox SC 40 mg DAILY [facility] Administration Piperacillin Sod/Tazobactam Sod 3.375 gm in 50 mls @ 100 mls/hr 03/03/18 11: 00 03/06/18 05:28 Zosyn 3.375 Gm Iv Premix IVPB 100 mls/hr Q6H [facility] Administration Protocol Meropenem 500 mg/ Sodium 100 mls @ 100 mls/hr 03/05/18 22:00 03/06/18 05:00 Chloride IVPB 100 mls/hr Q8 [facility] Administration Protocol Ketorolac Tromethamine 30 mg 03/05/18 17:00 03/05/18 17:13 Toradol IVP 30 mg Q6 PRN Administration Pain, moderate (4-7) Pantoprazole Sodium 40 mg 03/03/18 10:00 03/06/18 09:22 Protonix Inj IVP 40 mg DAILY [facility] Administration - Patient Studies Lab Studies: Microbiology Studies 02/28/18 20:30 Blood Culture - Final Blood NO GROWTH AFTER 5 DAYS Gram Stain - Final TEST NOT PERFORMED 02/28/18 19:25 Blood Culture - Final Blood NO GROWTH AFTER 5 DAYS Gram Stain - Final TEST NOT PERFORMED Lab Studies 03/06/18 03/06/18 03/05/18 Range/Units 06:41 06:41 16:36 WBC 22.1 H (4.8-10.8) K/uL RBC 3.51 L (4.40-5.90) Mil/uL Hgb 9.7 L (12.0-18.0) g/dL Hct 30.7 L (35.0-51.0) % MCV 87.4 (80.0-94.0) fL MCH 27.7 (27.0-31.0) pg MCHC 31.7 L (33.0-37.0) g/dL RDW 17.2 H (11.5-14.5) % Plt Count 294 (130-400) K/uL MPV 8.4 (7.2-11.7) fL Neut % (Auto) 82.0 H (50.0-75.0) % Lymph % (Auto) 7.5 L (20.0-40.0) % [place] % (Auto) 8.7 (0.0-10.0) % Eos % (Auto) 1.5 (0.0-4.0) % Baso % (Auto) 0.3 (0.0-2.0) % Neut # (Auto) 18.1 H (1.8-7.0) K/uL Lymph # (Auto) 1.6 (1.0-4.3) K/uL [place] # (Auto) 1.9 H (0.0-0.8) K/uL Eos # (Auto) 0.3 (0.0-0.7) K/uL Baso # (Auto) 0.1 (0.0-0.2) K/uL Neutrophils % (Manual) 82 H (50-75) % Lymphocytes % (Manual) 7 L (20-40) % Monocytes % (Manual) 8 (0-10) % Eosinophils % (Manual) 3 (0-4) % Toxic Granulation Present Platelet Estimate Normal (NORMAL) Large Platelets Present Polychromasia Slight Hypochromasia (manual) Slight Anisocytosis (manual) Moderate Puncture Site Lr pCO2 43 (35-45) mm/Hg pO2 39 L* (80-100) mm/Hg HCO3 25.7 (21-28) mmol/L ABG pH 7.40 (7.35-7.45) ABG Total CO2 27.9 (22-28) mmol/L ABG O2 Saturation 78.8 L (95-98) % ABG Base Excess 1.5 (-2.0-3.0) mmol/L ABG Hemoglobin 10.1 L (11.7-17.4) g/dL ABG Carboxyhemoglobin 2.2 H (0.5-1.5) % POC ABG HHb (Measured) 20.5 H (0.0-5.0) % ABG Methemoglobin 0.9 (0.0-3.0) % Victoriano Test Unable A-a O2 Difference 264.0 mm/Hg Respiratory Index 6.8 Hgb O2 Saturation 76.4 L (95.0-98.0) % Vent Mode Bipap FiO2 50.0 % Inspiratory BiPAP 18 Expiratory BiPAP 9 Crit Value Called To Dr. bobo Crit Value Called By Pushpa Crit Value Read Back Y Blood Gas Notified Time 1642 Sodium 151 H (132-148) mmol/L Potassium 3.7 (3.6-5.2) mmol/L Chloride 108 H (98-107) mmol/L Carbon Dioxide 32 H (22-30) mmol/L Anion Gap 16 (10-20) BUN 21 H (9-20) mg/dL Creatinine 1.6 H (0.8-1.5) mg/dL Est GFR ( Amer) 54 Est GFR (Non-Af Amer) 45 Random Glucose 80 (75-110) mg/dL Calcium 9.6 (8.6-10.4) mg/dl Phosphorus 3.8 (2.5-4.5) mg/dL Magnesium 2.3 (1.6-2.3) mg/dL Total Bilirubin 1.0 (0.2-1.3) mg/dL AST 16 L (17-59) U/L ALT 16 L (21-72) U/L Alkaline Phosphatase 86 (38-126) U/L Total Protein 6.9 (6.3-8.3) g/dL Albumin 2.9 L (3.5-5.0) g/dL Globulin 4.0 H (2.2-3.9) gm/dL Albumin/Globulin Ratio 0.7 L (1.0-2.1) Laboratory Results - last 24 hr 03/05/18 03/06/18 03/06/18 16:36 06:41 06:41 WBC 22.1 H RBC 3.51 L Hgb 9.7 L Hct 30.7 L MCV 87.4 MCH 27.7 MCHC 31.7 L RDW 17.2 H Plt Count 294 MPV 8.4 Neut % (Auto) 82.0 H Lymph % (Auto) 7.5 L [place] % (Auto) 8.7 Eos % (Auto) 1.5 Baso % (Auto) 0.3 Neut # (Auto) 18.1 H Lymph # (Auto) 1.6 [place] # (Auto) 1.9 H Eos # (Auto) 0.3 Baso # (Auto) 0.1 Neutrophils % (Manual) 82 H Lymphocytes % (Manual) 7 L Monocytes % (Manual) 8 Eosinophils % (Manual) 3 Toxic Granulation Present Platelet Estimate Normal Large Platelets Present Polychromasia Slight Hypochromasia (manual) Slight Anisocytosis (manual) Moderate Puncture Site Lr pCO2 43 pO2 39 L* HCO3 25.7 ABG pH 7.40 ABG Total CO2 27.9 ABG O2 Saturation 78.8 L ABG Base Excess 1.5 ABG Hemoglobin 10.1 L ABG Carboxyhemoglobin 2.2 H POC ABG HHb (Measured) 20.5 H ABG Methemoglobin 0.9 Victoriano Test Unable A-a O2 Difference 264.0 Respiratory Index 6.8 Hgb O2 Saturation 76.4 L Vent Mode Bipap FiO2 50.0 Inspiratory BiPAP 18 Expiratory BiPAP 9 Crit Value Called To Dr. bobo Crit Value Called By Pushpa Crit Value Read Back Y Blood Gas Notified Time 1642 Sodium 151 H Potassium 3.7 Chloride 108 H Carbon Dioxide 32 H Anion Gap 16 BUN 21 H Creatinine 1.6 H Est GFR ( Amer) 54 Est GFR (Non-Af Amer) 45 Random Glucose 80 Calcium 9.6 Phosphorus 3.8 Magnesium 2.3 Total Bilirubin 1.0 AST 16 L ALT 16 L Alkaline Phosphatase 86 Total Protein 6.9 Albumin 2.9 L Globulin 4.0 H Albumin/Globulin Ratio 0.7 L Critical Care Progress Note - Nutrition Nutrition: Nutrition Category Date Time Status Liquid Diet [DIET] Diets 03/06/18 Lunch Active Assessment/Plan (1) Acute respiratory failure with hypercapnia Current Visit: Yes Status: Acute Comment: Status post extubation yesterday Hypercapnia secondary to obstructive sleep apnea/COPD Continue BiPAP as needed Patient will benefit from TRILIGY Continue nebulizer treatment Advance diet as tolerated Continue diuretics Physical therapy DVT and stress ulcer prophylaxis
--- NOTE | 2018-03-06 14:22 | CP.PCM.PN ---
Subjective - Date & Time of Evaluation Date of Evaluation: 03/06/18 Time of Evaluation: 10:00 - Subjective Subjective: awake alert extubated overall improved WBC rising CXR still shows infiltrates Objective - Vital Signs/Intake and Output Vital Signs (last 24 hours): Temp Pulse Resp BP Pulse Ox 99.4 F 108 H 30 H 113/51 L 99 03/06/18 12:00 03/06/18 12:07 03/06/18 12:07 03/06/18 12:07 03/06/18 12:07 Intake and Output: 03/06/18 03/06/18 06:59 18:59 Intake Total 300 530 Output Total 490 250 Balance -190 280 - Medications Medications: Current Medications Acetaminophen (Tylenol 650mg/20.3ml Solution Ud) 650 mg PO Q6 PRN PRN Reason: fever Last Admin: 03/05/18 05:20 Dose: 650 mg Albuterol/Ipratropium (Duoneb 3 Mg/0.5 Mg (3 Ml) Ud) 3 ml INH RQ4 COUNTS INCLUDE 234 BEDS AT THE [facility] Last Admin: 03/06/18 12:29 Dose: 3 ml Enalapril Maleate (Vasotec) 10 mg PO DAILY [facility]S INCLUDE 234 BEDS AT THE [facility] Last Admin: 03/06/18 09:22 Dose: 10 mg Enoxaparin Sodium (Lovenox) 40 mg SC DAILY COUNTS INCLUDE 234 BEDS AT THE [facility] Last Admin: 03/06/18 09:22 Dose: 40 mg Meropenem 500 mg/ Sodium (Chloride) 100 mls @ 100 mls/hr IVPB Q8 [facility] PRN Reason: Protocol Last Admin: 03/06/18 13:29 Dose: 100 mls/hr Ketorolac Tromethamine (Toradol) 30 mg IVP Q6 PRN PRN Reason: Pain, moderate (4-7) Last Admin: 03/05/18 17:13 Dose: 30 mg Pantoprazole Sodium (Protonix Inj) 40 mg IVP DAILY COUNTS INCLUDE 234 BEDS AT THE [facility] Last Admin: 03/06/18 09:22 Dose: 40 mg - Labs Labs: 03/06/18 06:41 03/06/18 06:41 - Constitutional Appears: Non-toxic, Chronically Ill - Head Exam Head Exam: NORMOCEPHALIC - Eye Exam Eye Exam: PERRL - ENT Exam ENT Exam: Mucous Membranes Dry - Neck Exam Neck Exam: absent: Lymphadenopathy - Respiratory Exam Respiratory Exam: Decreased Breath Sounds - Cardiovascular Exam Cardiovascular Exam: REGULAR RHYTHM - GI/Abdominal Exam GI & Abdominal Exam: Distended - Rectal Exam Rectal Exam: Deferred - Exam Exam: NORMAL INSPECTION - Extremities Exam Extremities Exam: Pedal Edema Additional comments: left leg ulcer ++ - Back Exam Back Exam: absent: CVA tenderness (L), CVA tenderness (R) - Neurological Exam Neurological Exam: Alert, Awake, Oriented x3 Neuro motor strength exam: Left Upper Extremity: 4, Right Upper Extremity: 4, Left Lower Extremity: 4, Right Lower Extremity: 4 - Psychiatric Exam Psychiatric exam: Depressed - Skin Skin Exam: Dry Assessment and Plan (1) Dyspnea Status: Acute (2) Leg ulcer, left Status: Acute (3) Morbid obesity Status: Acute (4) Cellulitis Status: Acute (5) Fever Status: Acute - Assessment and Plan (Free Text) Assessment: add vanco to merrem cont local wound care to left leg check sputum C/S
[2018-03-07] MEDS: Albuterol-Ipratrop 3 mg / 0.5 (3 ml) UD INH SCH ×5 (03:07→19:37)
[2018-03-07] MEDS: Meropenem 500 MG in Sodium Chloride 0.9% 100 ML IVPB SCH ×3 (06:00→21:45)
[2018-03-07 06:36] LABS: BASO # 0.1 K/uL (0.0-0.2); BASO % 0.5 % (0.0-2.0); EOS # 0.3 K/uL (0.0-0.7); EOS % 1.8 % (0.0-4.0); HEMOGLOBIN 9.8 g/dL (12.0-18.0); LYMPH % 11.4 % (20.0-40.0); MEAN PLATELET VOLUME 7.8 fL (7.2-11.7); MONO # 1.7 K/uL (0.0-0.8); MONO % 9.7 % (0.0-10.0); NEUT # 13.7 K/uL (1.8-7.0); NEUT % 76.6 % (50.0-75.0); NRBC % 0.1 % (0.0-2.0); RBC 3.61 Mil/uL (4.40-5.90); RED CELL DISTRIBUTION WIDTH 17.4 % (11.5-14.5); WHITE BLOOD COUNT 17.8 K/uL (4.8-10.8)
[2018-03-07 06:51] LABS: ALB/GLOB RATIO 0.8 (1.0-2.1); ALBUMIN 3.2 g/dL (3.5-5.0); CALCIUM 9.8 mg/dl (8.6-10.4)
--- NOTE | 2018-03-07 09:13 | PN ---
DATE: 03/06/2018 The patient is alert and awake, on BiPAP, supportive care, physical therapy. Marixa Panchal MD
[2018-03-07] MEDS: Enoxaparin 40 mg Syringe SC SCH (10:08)
--- NOTE | 2018-03-07 11:50 | CP.CCUPN ---
<Hailey Espinal - Last Filed: 03/07/18 14:07> CCU Subjective - Physician Review Subjective (Free Text): Patient seen and examined in ICU. No overnight events reported. AAOx3, currently on 3L nasal cannuli. Patient still complains of SOB but states it is improving. Currently complaining of pain in distal upper and lower extremeties and decreased ROM. CCU Objective - Vital Signs / Intake & Output Vital Signs (Last 4 hours): Vital Signs Temp Pulse Resp BP Pulse Ox 03/07/18 10:45 114 H 40 H 130/71 99 03/07/18 10:16 112 H 16 131/68 98 03/07/18 10:09 112/53 L 03/07/18 10:00 111 H 26 H 98 03/07/18 09:00 118 H 14 96 03/07/18 08:45 120 H 40 H 112/53 L 97 03/07/18 08:00 99.3 F 116 H 13 95 Intake and Output (Last 8hrs): Intake & Output 03/06/18 03/07/18 03/07/18 22:59 06:59 14:59 Intake Total 730 180 360 Output Total 190 100 300 Balance 540 80 60 Weight 361 lb Intake: Intake, IV Amount 100 100 Right Distal Port 100 100 Internal Jugular Oral 630 80 360 Output: Urine 190 100 300 Urethral (Cai) 190 300 Urine, Voided 100 Other: # Voids Urethral (Cai) 1 - Physical Exam Head: Positive for: Atraumatic, Normocephalic Pupils: Positive for: PERRL Conjunctiva: Positive for: Normal Mouth: Positive for: Moist Mucous Membranes Neck: Positive for: Other (right IJ TLC) Respiratory/Chest: Positive for: Decreased Breath Sounds, Other (Coarse breath sounds). Negative for: Wheezes, Rales, Rhonchi Cardiovascular: Positive for: Regular Rate and Rhythm, Normal S1, S2 Abdomen: Positive for: Normal Bowel Sounds. Negative for: Tenderness Upper Extremity: Positive for: Edema. Negative for: Normal ROM (Decreased finger flexion/extension b/L) Lower Extremity: Positive for: Edema, Other (left lateral leg wound) Neurological: Positive for: GCS=15 Skin: Positive for: Warm, Dry, Other (psoriatic type lesions on b/l arms) Psychiatric: Positive for: Alert - Medications Active Medications: Active Medications Generic Name Dose Route Start Last Admin Trade Name Freq PRN Reason Stop Dose Admin Acetaminophen 650 mg 03/03/18 16:19 03/05/18 05:20 Tylenol 650mg/20.3ml Solution Ud PO 650 mg Q6 PRN Administration fever Albuterol/Ipratropium 3 ml 03/06/18 12:00 03/07/18 07:30 Duoneb 3 Mg/0.5 Mg (3 Ml) Ud INH 3 ml RQ4 [facility] Administration Enalapril Maleate 10 mg 03/03/18 10:00 03/07/18 10:09 Vasotec PO 10 mg DAILY [facility] Administration Enoxaparin Sodium 40 mg 03/01/18 10:00 03/07/18 10:08 Lovenox SC 40 mg DAILY [facility] Administration Meropenem 500 mg/ Sodium 100 mls @ 100 mls/hr 03/05/18 22:00 03/07/18 06:00 Chloride IVPB 100 mls/hr Q8 [facility] Administration Protocol Ketorolac Tromethamine 30 mg 03/05/18 17:00 03/07/18 10:22 Toradol IVP 30 mg Q6 PRN Administration Pain, moderate (4-7) Pantoprazole Sodium 40 mg 03/08/18 10:00 Protonix Ec Tab PO DAILY [facility] - Patient Studies Lab Studies: Lab Studies 03/07/18 03/07/18 03/07/18 Range/Units 05:59 05:59 05:55 WBC 17.8 H (4.8-10.8) K/uL RBC 3.61 L (4.40-5.90) Mil/uL Hgb 9.8 L (12.0-18.0) g/dL Hct 31.4 L (35.0-51.0) % MCV 87.0 (80.0-94.0) fL MCH 27.0 (27.0-31.0) pg MCHC 31.0 L (33.0-37.0) g/dL RDW 17.4 H (11.5-14.5) % Plt Count 322 (130-400) K/uL MPV 7.8 (7.2-11.7) fL Neut % (Auto) 76.6 H (50.0-75.0) % Lymph % (Auto) 11.4 L (20.0-40.0) % [place] % (Auto) 9.7 (0.0-10.0) % Eos % (Auto) 1.8 (0.0-4.0) % Baso % (Auto) 0.5 (0.0-2.0) % Neut # (Auto) 13.7 H (1.8-7.0) K/uL Lymph # (Auto) 2.0 (1.0-4.3) K/uL [place] # (Auto) 1.7 H (0.0-0.8) K/uL Eos # (Auto) 0.3 (0.0-0.7) K/uL Baso # (Auto) 0.1 (0.0-0.2) K/uL Sodium 145 (132-148) mmol/L Potassium 4.2 (3.6-5.2) mmol/L Chloride 106 (98-107) mmol/L Carbon Dioxide 29 (22-30) mmol/L Anion Gap 14 (10-20) BUN 20 (9-20) mg/dL Creatinine 1.5 (0.8-1.5) mg/dL Est GFR ( Amer) 58 Est GFR (Non-Af Amer) 48 POC Glucose (mg/dL) 104 (65-110) mg/dL Random Glucose 100 (75-110) mg/dL Calcium 9.8 (8.6-10.4) mg/dl Phosphorus 2.9 (2.5-4.5) mg/dL Magnesium 2.4 H (1.6-2.3) mg/dL Total Bilirubin 0.9 (0.2-1.3) mg/dL AST 16 L (17-59) U/L ALT 15 L (21-72) U/L Alkaline Phosphatase 84 (38-126) U/L Total Protein 7.5 (6.3-8.3) g/dL Albumin 3.2 L (3.5-5.0) g/dL Globulin 4.3 H (2.2-3.9) gm/dL Albumin/Globulin Ratio 0.8 L (1.0-2.1) Laboratory Results - last 24 hr 03/07/18 03/07/18 03/07/18 05:55 05:59 05:59 WBC 17.8 H RBC 3.61 L Hgb 9.8 L Hct 31.4 L MCV 87.0 MCH 27.0 MCHC 31.0 L RDW 17.4 H Plt Count 322 MPV 7.8 Neut % (Auto) 76.6 H Lymph % (Auto) 11.4 L [place] % (Auto) 9.7 Eos % (Auto) 1.8 Baso % (Auto) 0.5 Neut # (Auto) 13.7 H Lymph # (Auto) 2.0 [place] # (Auto) 1.7 H Eos # (Auto) 0.3 Baso # (Auto) 0.1 Sodium 145 Potassium 4.2 Chloride 106 Carbon Dioxide 29 Anion Gap 14 BUN 20 Creatinine 1.5 Est GFR ( Amer) 58 Est GFR (Non-Af Amer) 48 POC Glucose (mg/dL) 104 Random Glucose 100 Calcium 9.8 Phosphorus 2.9 Magnesium 2.4 H Total Bilirubin 0.9 AST 16 L ALT 15 L Alkaline Phosphatase 84 Total Protein 7.5 Albumin 3.2 L Globulin 4.3 H Albumin/Globulin Ratio 0.8 L Review of Systems - Constitutional Constitutional: absent: Fever, Chills, Sweats - EENT Eyes: UNREMARKABLE Ears: UNREMARKABLE - Cardiovascular Cardiovascular: absent: Chest Pain, Palpitations - Respiratory Respiratory: Dyspnea - Gastrointestinal Gastrointestinal: UNREMARKABLE. absent: Abdominal Pain, Change in Bowel Habits - Genitourinary Genitourinary: UNREMARKABLE. absent: Hematuria - Musculoskeletal Musculoskeletal: Limited Range of Motion (Distal lower and Upper Extremeties B/ L.) - Neurological Neurological: UNREMARKABLE - Psychiatric Psychiatric: UNREMARKABLE - Endocrine Endocrine: UNREMARKABLE Critical Care Progress Note - Nutrition Nutrition: Nutrition Category Date Time Status Heart Healthy Diet [DIET] Diets 03/07/18 Lunch Active Assessment/Plan - Assessment and Plan (Free Text) Assessment: 57 year old male with PMHx significant for HTN, admitted to ICU for evaluation and treatment of acute respiratory failure with hypercapnia 2/2 to ANDREIA/COPD. Plan: Neuro: GSC 15 Sedation: None MSK A: Distal lower extremity and upper extremity join pain. Likely 2/2 to Arthritis (Rh vs Osteo) Toradol 30 Q6H PRN Cardio A: HTN Enalapril 10 PO Daily Pulm Sat at 99% on 3L NC A: Hypercapnic Res. Failure 2/2 to ANDREIA vs COPD CXR (03/07): Cardiomegaly w/ Pulm venous congestion. Small B/L Pleural Effusion BiPAP PRN DuoNeb Q4 [facility] GI Protonix 40 PO Daily Nephro/electrolytes I/O: 760/300 Balance: 460 ID A: Left Lower Ext. Cellulitis Afebrile, Leukocytosis improving Meropenem 500mg Q8H Vancomycin due to worsening renal function and negative MRSA Cultures Endo random fingerstick Glucose WNL Prophylaxis Lovenox 40 SC Daily Protonix 40 Daily Heart Healthy Diet. Dispo: Transfer to Med/Surg Patient seen and discussed with ICU Attending Hailey Espinal, PGY-1 <Poly Almaraz - Last Filed: 03/13/18 06:44> Critical Care Progress Note - Nutrition Nutrition: Nutrition Category Date Time Status Heart Healthy Diet [DIET] Diets 03/07/18 Lunch Active Attending/Attestation - Attestation I have personally seen and examined this patient.: Yes I have fully participated in the care of the patient.: Yes I have reviewed all pertinent clinical information: Yes
--- NOTE | 2018-03-07 12:46 | CP.PCM.PN ---
Subjective - Date & Time of Evaluation Date of Evaluation: 03/07/18 Time of Evaluation: 08:00 - Subjective Subjective: wbc trending down Objective - Vital Signs/Intake and Output Vital Signs (last 24 hours): Temp Pulse Resp BP Pulse Ox 99.3 F 114 H 40 H 130/71 99 03/07/18 08:00 03/07/18 10:45 03/07/18 10:45 03/07/18 10:45 03/07/18 10:45 Intake and Output: 03/07/18 03/07/18 06:59 18:59 Intake Total 310 360 Output Total 100 300 Balance 210 60 - Medications Medications: Current Medications Acetaminophen (Tylenol 650mg/20.3ml Solution Ud) 650 mg PO Q6 PRN PRN Reason: fever Last Admin: 03/05/18 05:20 Dose: 650 mg Albuterol/Ipratropium (Duoneb 3 Mg/0.5 Mg (3 Ml) Ud) 3 ml INH RQ4 [facility] Last Admin: 03/07/18 07:30 Dose: 3 ml Enalapril Maleate (Vasotec) 10 mg PO DAILY [facility] Last Admin: 03/07/18 10:09 Dose: 10 mg Enoxaparin Sodium (Lovenox) 40 mg SC DAILY [facility] Last Admin: 03/07/18 10:08 Dose: 40 mg Meropenem 500 mg/ Sodium (Chloride) 100 mls @ 100 mls/hr IVPB Q8 [facility] PRN Reason: Protocol Last Admin: 03/07/18 06:00 Dose: 100 mls/hr Ketorolac Tromethamine (Toradol) 30 mg IVP Q6 PRN PRN Reason: Pain, moderate (4-7) Last Admin: 03/07/18 10:22 Dose: 30 mg Pantoprazole Sodium (Protonix Ec Tab) 40 mg PO DAILY [facility] - Labs Labs: 03/07/18 05:59 03/07/18 05:59 Assessment and Plan (1) Dyspnea Status: Acute (2) Leg ulcer, left Status: Acute (3) Morbid obesity Status: Acute (4) Cellulitis Status: Acute (5) Fever Status: Acute
--- NOTE | 2018-03-07 12:48 | RAD ---
HISTORY: verify right PICC COMPARISON: The the 03/05/18 FINDINGS: Interval placement right-sided PICC line tip in the SVC. No change right-sided central venous line with tip also in the SVC. LUNGS: Pulmonary venous congestive changes with questionable small bilateral effusions PLEURA: As above. No pneumothorax apparent. CARDIOVASCULAR: Cardiomegaly. OSSEOUS STRUCTURES: No significant abnormalities. VISUALIZED UPPER ABDOMEN: Normal. OTHER FINDINGS: None. IMPRESSION: Interval placement right-sided PICC line. No change right-sided central venous line with tip in the SVC Cardiomegaly with pulmonary venous congestive changes and questionable small bilateral effusions
[2018-03-08] MEDS: Albuterol-Ipratrop 3 mg / 0.5 (3 ml) UD INH SCH ×5 (00:28→16:07)
[2018-03-08] MEDS: Meropenem 500 MG in Sodium Chloride 0.9% 100 ML IVPB SCH ×2 (06:00→13:34)
--- NOTE | 2018-03-08 07:50 | CP.PCM.PN ---
Subjective - Date & Time of Evaluation Date of Evaluation: 03/08/18 Time of Evaluation: 07:50 - Subjective Subjective: PGY-[address] Panchal's Service: Pt seen and examined at bedside. Nursing reports no acute events overnight. Pt found resting comfortably in bed. He admits SOB has improved greatly since admission. Reports breathing comfortable on 2L NC. Denies chest pain, fever, chills, abd pain, N/V. Objective - Vital Signs/Intake and Output Vital Signs (last 24 hours): Temp Pulse Resp BP Pulse Ox 98.2 F 114 H 26 H 119/64 96 03/08/18 04:00 03/08/18 00:00 03/08/18 00:00 03/08/18 00:00 03/08/18 00:00 Intake and Output: 03/08/18 03/08/18 06:59 18:59 Intake Total 200 Output Total 650 Balance -450 - Medications Medications: Current Medications Acetaminophen (Tylenol 650mg/20.3ml Solution Ud) 650 mg PO Q6 PRN PRN Reason: fever Last Admin: 03/05/18 05:20 Dose: 650 mg Albuterol/Ipratropium (Duoneb 3 Mg/0.5 Mg (3 Ml) Ud) 3 ml INH RQ4 [facility] Last Admin: 03/08/18 07:46 Dose: 3 ml Enalapril Maleate (Vasotec) 10 mg PO DAILY [facility] Last Admin: 03/07/18 10:09 Dose: 10 mg Enoxaparin Sodium (Lovenox) 40 mg SC DAILY [facility] Last Admin: 03/07/18 10:08 Dose: 40 mg Meropenem 500 mg/ Sodium (Chloride) 100 mls @ 100 mls/hr IVPB Q8 [facility] PRN Reason: Protocol Last Admin: 03/07/18 21:45 Dose: 100 mls/hr Pantoprazole Sodium (Protonix Ec Tab) 40 mg PO DAILY [facility] - Labs Labs: 03/07/18 05:59 03/07/18 05:59 - Constitutional Appears: Non-toxic, No Acute Distress, Other (morbidly obese) - Eye Exam Eye Exam: EOMI. absent: Scleral icterus Pupil Exam: PERRL - ENT Exam ENT Exam: Mucous Membranes Moist - Neck Exam Neck Exam: Full ROM - Respiratory Exam Respiratory Exam: Decreased Breath Sounds (perhaps due to habitus; no rhonchi) - Cardiovascular Exam Cardiovascular Exam: REGULAR RHYTHM, +S1, +S2 - GI/Abdominal Exam GI & Abdominal Exam: Soft, Normal Bowel Sounds (morbid obesity) - Extremities Exam Extremities Exam: Tenderness. absent: Normal Inspection Additional comments: left lateral leg wound - Neurological Exam Neurological Exam: Alert, Awake, Oriented x3 - Psychiatric Exam Psychiatric exam: Normal Affect - Skin Skin Exam: Normal Color (except otherwise noted about left leg), Warm Assessment and Plan - Assessment and Plan (Free Text) Plan: Left Lower Ext. 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 Small B/L Pleural Effusion BiPAP PRN DuoNeb Q4 [facility] O2 99% at 2L Arthritis Unclear if osteo or Rheum Toradol 30mg IV Q6H PRN HTN Well controlled Enalapril 10 PO Daily Disposition: Pt for transfer to [facility] per Dr. Panchal. Seven more days of Merrem per Dr. Antonio. Eddie Barlow PGY-[address] Panchal
[2018-03-08 09:08] VITALS: RESP 20
[2018-03-08] MEDS: Enoxaparin 40 mg Syringe SC SCH (09:23)
[2018-03-08] MEDS ORDERED: Pantoprazole 40 mg EC Tab PO SCH (10:00)
--- NOTE | 2018-03-08 10:23 | CP.PCM.PN ---
Subjective - Date & Time of Evaluation Date of Evaluation: 03/08/18 Time of Evaluation: 10:00 - Subjective Subjective: awake alert nad Objective - Vital Signs/Intake and Output Vital Signs (last 24 hours): Temp Pulse Resp BP Pulse Ox 98.5 F 115 H 20 114/60 100 03/08/18 08:00 03/08/18 08:00 03/08/18 08:00 03/08/18 09:23 03/08/18 08:00 Intake and Output: 03/08/18 03/08/18 06:59 18:59 Intake Total 200 Output Total 650 Balance -450 - Medications Medications: Current Medications Acetaminophen (Tylenol 650mg/20.3ml Solution Ud) 650 mg PO Q6 PRN PRN Reason: fever Last Admin: 03/05/18 05:20 Dose: 650 mg Albuterol/Ipratropium (Duoneb 3 Mg/0.5 Mg (3 Ml) Ud) 3 ml INH RQ4 [facility] Last Admin: 03/08/18 07:46 Dose: 3 ml Enalapril Maleate (Vasotec) 10 mg PO DAILY [facility] Last Admin: 03/08/18 09:23 Dose: 10 mg Enoxaparin Sodium (Lovenox) 40 mg SC DAILY [facility] Last Admin: 03/08/18 09:23 Dose: 40 mg Meropenem 500 mg/ Sodium (Chloride) 100 mls @ 100 mls/hr IVPB Q8 [facility] PRN Reason: Protocol Last Admin: 03/08/18 06:00 Dose: 100 mls/hr Pantoprazole Sodium (Protonix Ec Tab) 40 mg PO DAILY [facility] Last Admin: 03/08/18 09:23 Dose: 40 mg - Labs Labs: 03/07/18 05:59 03/07/18 05:59 - Constitutional Appears: Non-toxic, Chronically Ill - Head Exam Head Exam: NORMOCEPHALIC - Eye Exam Eye Exam: PERRL - ENT Exam ENT Exam: Mucous Membranes Dry - Neck Exam Neck Exam: absent: Lymphadenopathy - Respiratory Exam Respiratory Exam: Decreased Breath Sounds - Cardiovascular Exam Cardiovascular Exam: REGULAR RHYTHM, +S1, +S2 - GI/Abdominal Exam GI & Abdominal Exam: Distended, Soft. absent: Tenderness - Rectal Exam Rectal Exam: Deferred - Exam Exam: NORMAL INSPECTION - Extremities Exam Extremities Exam: absent: Pedal Edema - Back Exam Back Exam: absent: CVA tenderness (L), CVA tenderness (R) - Neurological Exam Neurological Exam: Alert, Awake, CN II-XII Intact, Oriented x3 Assessment and Plan (1) Dyspnea Status: Acute (2) Leg ulcer, left Status: Acute (3) Morbid obesity Status: Acute (4) Cellulitis Status: Acute (5) Fever Status: Acute
[2018-03-08 12:52] VITALS: O2SAT 100
[2018-03-08 16:43] VITALS: BP 124/70; PULSE 115; TEMP 98
--- NOTE | 2018-03-23 12:18 | DS ---
Patient chief complaint of weakness, fatigue, tiredness. The patient came to the hospital, advised admission. The patient was placed on bed rest, supportive care. Patient discharge, follow up outpatient. aMrixa Panchal MD
== END 2018-03-08 18:00 | DRG 208 ==
LOC: C.ER 16:45 → C.9E 22:38 → C.6T 03-01 01:22 → C.9I 03-02 14:05
PROVIDERS: ADMIT Internal Medicine Pulmonary Disease; ATTEND Internal Medicine Pulmonary Disease
PROC: 5A09457 Assistance with Respiratory Ventilation, 24-96 Consecutive Hours, Continuous Positive Airway Pressure (ICD-10-PCS; 2018-02-28)
PROC: 0BH18EZ Insertion of Endotracheal Airway into Trachea, Via Natural or Artificial Opening Endoscopic (ICD-10-PCS; principal; 2018-03-02)
PROC: 5A1945Z Respiratory Ventilation, 24-96 Consecutive Hours (ICD-10-PCS; 2018-03-02)
PROC: 05HM33Z Insertion of Infusion Device into Right Internal Jugular Vein, Percutaneous Approach (ICD-10-PCS; 2018-03-02)
PROC: 3E0G76Z Introduction of Nutritional Substance into Upper GI, Via Natural or Artificial Opening (ICD-10-PCS; 2018-03-03)
PROC: 02HV33Z Insertion of Infusion Device into Superior Vena Cava, Percutaneous Approach (ICD-10-PCS; 2018-03-07)
DX: J96.02 Acute respiratory failure with hypercapnia (principal); E66.2 Morbid (severe) obesity with alveolar hypoventilation; E87.3 Alkalosis; J81.1 Chronic pulmonary edema; J90 Pleural effusion, not elsewhere classified; L03.116 Cellulitis of left lower limb; L97.929 Non-pressure chronic ulcer of unspecified part of left lower leg with unspecified severity; G47.33 Obstructive sleep apnea (adult) (pediatric); Z68.44 Body mass index [BMI] 60.0-69.9, adult; I10 Essential (primary) hypertension; I27.20 Pulmonary hypertension, unspecified; J44.9 Chronic obstructive pulmonary disease, unspecified; B96.89 Other specified bacterial agents as the cause of diseases classified elsewhere; E78.00 Pure hypercholesterolemia, unspecified; K21.9 Gastro-esophageal reflux disease without esophagitis